=== PATIENT | male | born 1955 | race Caucasian/White ===

== ENCOUNTER 2019-09-17 17:06 | Inpatient (IN) | payer MEDICARE, OTHER ==
[~2019-09-17] VITALS: Ht 170.2 cm; Wt 63.5 kg
[2019-09-17] VITALS: BP 93/61
[~2019-09-17 17:06] MED LIST: ASPIR 8181 MG; BONIVA150 MG PO; LORCET 10-6501 EACH PO; OMEPRAZOLE40 MG PO; PRINIVIL10 MG PO; REMICADE100 MG; REMICADE100 MG/VIA; TRAMADOL HCL50 M1; ULTRAM50 MG PO; Z.0.BONIVA150 MG
--- OUTSIDE RECORDS SUMMARY | 2019-09-17 17:11 | XMS REPORT ---
Author Author [facility] Organization [facility] Address Unknown Phone Unavailable Care Team Providers Care Magistrate Assistant Name Role Phone Unavailable Unavailable Payers Payer Name Policy Type Policy Number Effective Date Expiration D ate Problems This patient has no known problems. Allergies, Adverse Reactions, Alerts Allergy Name Allergy Type Status Severity Reaction(s) Onset Date Inacti ve Date Treating Clinician Comments No Known Allergies DA Active U 2018-08-26 00:00:00 No Known Allergies DA Active U 2016-12-07 00:00:00 Medications This patient has no known medications. Results Test Description Test Time Test Comments Text Results Atomic Results Result Comments URINALYSIS COMPLETE 2018-08-26 17:37:00 UA COLOR (test code = COLU) LIGHT YELLOW YELLOW UA APPEARANCE (test code = APPU) CLEAR CLEAR UA GLUCOSE DIPSTICK (test code = DGLUU) NEGATIVE mg/dL NEGATIVE UA BILIRUBIN DIPSTICK (test code = BILU) NEGATIVE mg/dL NEGATIV E UA KETONE DIPSTICK (test code = KETU) NEGATIVE mg/dL NEGATIVE UA SPECIFIC GRAVITY (test code = SGU) 1.017 1.001-1.03 5 UA BLOOD DIPSTICK (test code = DELL) Negative mg/dL NEGATIVE UA PH DIPSTICK (test code = ANA MARIA) 6.0 5.0-8.0 UA PROTEIN DIPSTICK (test code = PROU) NEGATIVE mg/dL NEGATIVE UA UROBILINIOGEN DIPSTICK (test code = URO) NEGATIVE mg/dL NEGA TIVE UA NITRITE DIPSTICK (test code = RADHA) NEGATIVE NEGATIVE UA LEUKOCYTE ESTERASE W REFLEX (test code = LEUUR) NEGATIVE Jerilyn/ uL NEGATIVE UA WBC (test code = WBCU) 0-5 per HPF 0-5 UA RBC (test code = RBCU) 0-2 #/HPF 0-5 UA EPITHELIAL CELLS (test code = EPIU) FEW per HPF FEW UA BACTERIA (test code = BACU) NONE SEEN #/HPF NONE Urine Source? Clean CatchURINALYSIS [id number] 17:36:00* Test Item Value Reference Range Comments UA COLOR (test code = COLU) LIGHT YELLOW YELLOW UA APPEARANCE (test code = APPU) CLEAR CLEAR UA GLUCOSE DIPSTICK (test code = DGLUU) NEGATIVE mg/dL NEGATIVE UA BILIRUBIN DIPSTICK (test code = BILU) NEGATIVE mg/dL NEGATIV E UA KETONE DIPSTICK (test code = KETU) NEGATIVE mg/dL NEGATIVE UA SPECIFIC GRAVITY (test code = SGU) 1.017 1.001-1.03 5 UA BLOOD DIPSTICK (test code = DELL) Negative mg/dL NEGATIVE UA PH DIPSTICK (test code = ANA MARIA) 6.0 5.0-8.0 UA PROTEIN DIPSTICK (test code = PROU) NEGATIVE mg/dL NEGATIVE UA UROBILINIOGEN DIPSTICK (test code = URO) NEGATIVE mg/dL NEGA TIVE UA NITRITE DIPSTICK (test code = RAHDA) NEGATIVE NEGATIVE UA LEUKOCYTE ESTERASE W REFLEX (test code = LEUUR) NEGATIVE Jerilyn/ uL NEGATIVE UA WBC (test code = WBCU) per HPF 0-5 UA RBC (test code = RBCU) per HPF 0-5 UA EPITHELIAL CELLS (test code = EPIU) per HPF Few UA BACTERIA (test code = BACU) per HPF NONE Urine Source? Clean CatchBASIC METABOLIC [id number] 17:21:00* Test Item Value Reference Range Comments SODIUM (test code = NA) 139 mmol/L 136-145 POTASSIUM (test code = K) 4.2 mmol/L 3.5-5.1 CHLORIDE (test code = CL) 107.0 mmol/L 98-107 CARBON DIOXIDE (test code = CO2) 29.0 mmol/L 21-32 ANION GAP (test code = GAP) 7.2 10-20 GLUCOSE (test code = GLU) 94 mg/dL 74-106 BLOOD UREA NITROGEN (test code = BUN) 17 mg/dL 7-18 GLOMERULAR FILTRATION RATE (test code = GFR) > 60 mL/min >=6 0 Estimated GFR by using Modified MDRD formula.Chronic kidney disease is defined as either kidney damageor GFR <60 mL/min/1.73 m2 for >3 months. CREATININE (test code = CREAT) 1.10 mg/dL 0.7-1.3 BUN/CREATININE RATIO (test code = BUN/CREA) 15.5 10-2 0 CALCIUM (test code = CA) 9.0 mg/dL 8.5-10.1 [id number] 17:21:00* Test Item Value Reference Range Comments TROPONIN-I (test code = TROPI) <0.015 ng/mL 0-0.045 BASIC METABOLIC [id number] 16:46:00* Test Item Value Reference Range Comments SODIUM (test code = NA) 139 mmol/L 136-145 POTASSIUM (test code = K) 4.2 mmol/L 3.5-5.1 CHLORIDE (test code = CL) 107.0 mmol/L 98-107 CARBON DIOXIDE (test code = CO2) mmol/L 21-32 ANION GAP (test code = GAP) 10-20 GLUCOSE (test code = GLU) mg/dL 74-106 BLOOD UREA NITROGEN (test code = BUN) mg/dL 7-18 GLOMERULAR FILTRATION RATE (test code = GFR) mL/min >=6 0 CREATININE (test code = CREAT) mg/dL 0.7-1.3 BUN/CREATININE RATIO (test code = BUN/CREA) 10-2 0 CALCIUM (test code = CA) 9.0 mg/dL 8.5-10.1 [id number] 16:46:00* Test Item Value Reference Range Comments TROPONIN-I (test code = TROPI) ng/mL 0-0.045 CBC W/O [id number] 16:16:00* Test Item Value Reference Range Comments WHITE BLOOD CELL (test code = WBC) 5.1 K/mm3 4.5-12.5 RED BLOOD CELL (test code = RBC) 5.15 mill/mm3 4.0-5.8 HEMOGLOBIN (test code = HGB) 16.3 gram/dL 13.0-17.5 HEMATOCRIT (test code = HCT) 50.8 % 42.0-52.0 MEAN CELL VOLUME (test code = MCV) 97.7 fL 80-98 MEAN CELL HGB (test code = MCH) 31.7 picogram 27.0-33.0 MEAN CELL HGB CONCETRATION (test code = MCHC) 32.4 gram/dL 33 .0-36.0 RED CELL DISTRIBUTION WIDTH (test code = RDW) 12.4 % 11 .6-16.2 PLATELET COUNT (test code = PLT) 89 K/mm3 150-450 MEAN PLATELET VOLUME (test code = MPV) 10.8 fL 6.7-11.0 CBC W/O [id number] 16:13:00* Test Item Value Reference Range Comments WHITE BLOOD CELL (test code = WBC) K/mm3 4.5-12.5 RED BLOOD CELL (test code = RBC) mill/mm3 4.0-5.8 HEMOGLOBIN (test code = HGB) 16.3 gram/dL 13.0-17.5 HEMATOCRIT (test code = HCT) 50.8 % 42.0-52.0 MEAN CELL VOLUME (test code = MCV) fL 80-98 MEAN CELL HGB (test code = MCH) picogram 27.0-33.0 MEAN CELL HGB CONCETRATION (test code = MCHC) gram/dL 33 .0-36.0 RED CELL DISTRIBUTION WIDTH (test code = RDW) % 11 .6-16.2 PLATELET COUNT (test code = PLT) K/mm3 150-450 MEAN PLATELET VOLUME (test code = MPV) fL 6.7-11.0 - CT HEAD/BRAIN W/O [id number] 15:59:00 Name: ROSEANN HURT [facility] : 1955 Age/S: 63 / M [address] [facility] Unit #: [id number] Loc: [facility] [place] [address] Phys: Cristy Chan DO Acct: [id number] Dis Date: Status: REG ER PHONE #: [phone] Exam Date: 08/26/2018 6137 FAX #: [phone] Reason: dizziness EXAMS: CPT CODE: [id number] CT HEAD/BRAIN W/O CONT 73084 REASON FOR EXAM: dizziness EXAM ORDER DATE: 08/26/2018 3:48 PM Ordering MGracielaDGraciela: Cristy Chan DO PROCEDURE: - CT HEAD/BRAIN W/O CONT COMPARISON: FINDINGS: CT images of the brain were obtained without IV contrast. Dose modulation, iterative reconstruction, and/or weight based adjustment of the MA/KV was utilized to reduce the radiation dose to as low as reasonably achievable. The brain parenchyma is within normal limits. The palmer-white matter delineation is unremarkable. The ventricles, cisterns, and sulci are unremarkable. There is no evidence of hemorrhage, mass, mass effect. There is no evidence of acute or old infarct. The calvarium is intact. IMPRESSION: Unremarkable brain. at 1559 Reported and signed by: Mason Garcia M.D. CC: Nico Smith DO; Cristy Chan DO Techn ologist:Marcela Lima RT(R)(CT) CTDI: DLP: Trnscb Date/Ari e: 08/26/2018 (1559) t.SDR.VTL Orig Print D/T: S: 019 (2792) CTDI: DLP: PAGE 1 Sign ed Report DRUGS OF ABUSE SCREEN [id number] 04:57:00* Test Item Value Reference Range Comments URN COCAINE (test code = COCAURN) NEGATIVE NEGATIVE URN CANNABINOIDS (test code = CANNABURN) NEGATIVE NEGATIV E URN AMPHETAMINE (test code = AMPHETURN) NEGATIVE NEGATIVE URN BARBITURATE (test code = BARBITURN) NEGATIVE NEGATIVE URN BENZODIAZEPINE (test code = BENZOURN) NEGATIVE NEGATI VE Cut-off value:200 ng/mL URN OPIATES (test code = OPIATURN) POSITIVE NEGATIVE Cut-off value:2000 ng/mL URN PHENCYCLIDINE (PCP) (test code = PHENCURN) NEGATIVE N EGATIVE Cutoffs:Barbiturates 200 ng/mLBenzodiazepines 200 ng/mLTHC Cannabinoids 50 ng/mLOpiates(Morphine) 2000 ng/mLAmphetamine 1000 ng/mLCocaine 300 ng/mLPCP phencyclidine 25 ng/mL Unconfirmed screening results shouldnot be used for non-medical purposes. URINALYSIS [id number] 04:52:00* Test Item Value Reference Range Comments UA COLOR (test code = COLU) YELLOW YEL/STRAW UA APPEARANCE (test code = APPU) CLEAR CLEAR UA GLUCOSE DIPSTICK (test code = DGLUU) NEGATIVE NEGATIVE UA BILIRUBIN DIPSTICK (test code = BILU) NEGATIVE NEGATIV E UA KETONE DIPSTICK (test code = KETU) TRACE NEGATIVE UA SPECIFIC GRAVITY (test code = SGU) 1.021 1.005-1.03 0 UA BLOOD DIPSTICK (test code = DELL) NEGATIVE NEGATIVE UA PH DIPSTICK (test code = ANA MARIA) 5.0 5.0-7.0 UA PROTEIN DIPSTICK (test code = PROU) NEGATIVE NEGATIVE UA UROBILINIOGEN DIPSTICK (test code = URO) 2.0 mg/dL 0.2- 1.0 UA NITRITE DIPSTICK (test code = RADHA) NEGATIVE NEGATIVE UA LEUKOCYTE ESTERASE DIPSTICK (test code = LEUU) NEGATIVE NEGATIVE UA WBC (test code = WBCU) 0-3 WBC/HPF 0-3 UA RBC (test code = RBCU) 0-3 RBC/HPF 0-3 UA BACTERIA (test code = BACU) TRACE /HPF NONE SEEN UA SQUAMOUS CELLS (test code = SQU) 0-5 /HPF NONE SEEN UA HYALINE CAST (test code = HYALU) 6-10 /LPF NONE SEEN UA MUCUS (test code = MUCU) TRACE /LPF NONE SEEN COMMENTS: Clean CatchDRUGS OF ABUSE SCREEN [id number] 04:44:00* Test Item Value Reference Range Comments URN COCAINE (test code = COCAURN) NEGATIVE NEGATIVE URN CANNABINOIDS (test code = CANNABURN) NEGATIVE NEGATIV E URN AMPHETAMINE (test code = AMPHETURN) NEGATIVE NEGATIVE URN BARBITURATE (test code = BARBITURN) NEGATIVE NEGATIVE URN BENZODIAZEPINE (test code = BENZOURN) NEGATIVE NEGATI VE Cut-off value:200 ng/mL URN OPIATES (test code = OPIATURN) NEGATIVE URN PHENCYCLIDINE (PCP) (test code = PHENCURN) NEGATIVE N EGATIVE Cutoffs:Barbiturates 200 ng/mLBenzodiazepines 200 ng/mLTHC Cannabinoids 50 ng/mLOpiates(Morphine) 2000 ng/mLAmphetamine 1000 ng/mLCocaine 300 ng/mLPCP phencyclidine 25 ng/mL Unconfirmed screening results shouldnot be used for non-medical purposes. CBC W/AUTO [id number] 04:14:00* Test Item Value Reference Range Comments WHITE BLOOD CELL (test code = WBC) 3.72 x10 3/uL 4.5-11.0 RED BLOOD CELL (test code = RBC) 5.09 x10 6/uL 4.00-5.60 HEMOGLOBIN (test code = HGB) 16.6 g/dL 12.5-16.9 HEMATOCRIT (test code = HCT) 50.0 % 37.5-50.7 MEAN CELL VOLUME (test code = MCV) 98.2 fL 81.0-99.0 MEAN CELL HGB (test code = MCH) 32.6 pg 27.0-33.0 MEAN CELL HGB CONCETRATION (test code = MCHC) 33.2 g/dL 33 .0-37.0 RED CELL DISTRIBUTION WIDTH CV (test code = RDW) 12.4 % 11.5-14.5 RED CELL DISTRIBUTION WIDTH SD (test code = RDW-SD) 45.7 fL 37.0-54.0 PLATELET COUNT (test code = PLT) 67 x10 3/uL 150-400 IMMATURE PLATELET FRACTION (test code = IPF) 4.6 % 0.9 -11.2 MEAN PLATELET VOLUME (test code = MPV) 10.9 fL 7.0-9.0 NEUTROPHIL % (test code = NT%) 40.3 % 56.0-77.0 IMMATURE GRANULOCYTE % (test code = IG%) 0.3 % 0.0-2.0 LYMPHOCYTE % (test code = LY%) 31.7 % 14.0-32.0 MONOCYTE % (test code = MO%) 26.6 % 4.8-9.0 EOSINOPHIL % (test code = EO%) 0.3 % 0.3-3.7 BASOPHIL % (test code = BA%) 0.8 % 0.0-2.0 NUCLEATED RBC % (test code = NRBC%) 0.0 % 0-0 NEUTROPHIL # (test code = NT#) 1.50 x10 3/uL 2.0-7.6 IMMATURE GRANULOCYTE # (test code = IG#) 0.01 x10 3/uL 0.00-0. 03 LYMPHOCYTE # (test code = LY#) 1.18 x10 3/uL 1.0-3.8 MONOCYTE # (test code = MO#) 0.99 x10 3/uL 0.1-0.8 EOSINOPHIL # (test code = EO#) 0.01 x10 3/uL 0.0-0.2 BASOPHIL # (test code = BA#) 0.03 x10 3/uL 0.0-0.2 NUCLEATED RBC # (test code = NRBC#) 0.00 x10 3/uL 0.0-0.1 MANUAL DIFF REQUIRED (test code = MDIFF) NO SLIDE REVIEWED, CONSISTENT WITH AUTO DIFF. PLT [id number] 04:14:00* Test Item Value Reference Range Comments PLATELET ESTIMATE (test code = PLTEST) 68-7-85 THOUSAND ADEQUATE PLATELET MORPHOLOGY (test code = PLTMORPH) NORMAL CBC W/AUTO [id number] 04:12:00* Test Item Value Reference Range Comments WHITE BLOOD CELL (test code = WBC) 3.72 x10 3/uL 4.5-11.0 RED BLOOD CELL (test code = RBC) 5.09 x10 6/uL 4.00-5.60 HEMOGLOBIN (test code = HGB) 16.6 g/dL 12.5-16.9 HEMATOCRIT (test code = HCT) 50.0 % 37.5-50.7 MEAN CELL VOLUME (test code = MCV) 98.2 fL 81.0-99.0 MEAN CELL HGB (test code = MCH) 32.6 pg 27.0-33.0 MEAN CELL HGB CONCETRATION (test code = MCHC) 33.2 g/dL 33 .0-37.0 RED CELL DISTRIBUTION WIDTH CV (test code = RDW) 12.4 % 11.5-14.5 RED CELL DISTRIBUTION WIDTH SD (test code = RDW-SD) 45.7 fL 37.0-54.0 PLATELET COUNT (test code = PLT) 67 x10 3/uL 150-400 IMMATURE PLATELET FRACTION (test code = IPF) 4.6 % 0.9 -11.2 MEAN PLATELET VOLUME (test code = MPV) 10.9 fL 7.0-9.0 NEUTROPHIL % (test code = NT%) 40.3 % 56.0-77.0 IMMATURE GRANULOCYTE % (test code = IG%) 0.3 % 0.0-2.0 LYMPHOCYTE % (test code = LY%) 31.7 % 14.0-32.0 MONOCYTE % (test code = MO%) 26.6 % 4.8-9.0 EOSINOPHIL % (test code = EO%) 0.3 % 0.3-3.7 BASOPHIL % (test code = BA%) 0.8 % 0.0-2.0 NUCLEATED RBC % (test code = NRBC%) 0.0 % 0-0 NEUTROPHIL # (test code = NT#) 1.50 x10 3/uL 2.0-7.6 IMMATURE GRANULOCYTE # (test code = IG#) 0.01 x10 3/uL 0.00-0. 03 LYMPHOCYTE # (test code = LY#) 1.18 x10 3/uL 1.0-3.8 MONOCYTE # (test code = MO#) 0.99 x10 3/uL 0.1-0.8 EOSINOPHIL # (test code = EO#) 0.01 x10 3/uL 0.0-0.2 BASOPHIL # (test code = BA#) 0.03 x10 3/uL 0.0-0.2 NUCLEATED RBC # (test code = NRBC#) 0.00 x10 3/uL 0.0-0.1 MANUAL DIFF REQUIRED (test code = MDIFF) NO SLIDE REVIEWED, CONSISTENT WITH AUTO DIFF. PLT [id number] 04:12:00* Test Item Value Reference Range Comments PLATELET ESTIMATE (test code = PLTEST) THOUSAND ADEQUATE PROTHROMBIN [id number] 03:04:00* Test Item Value Reference Range Comments PROTHROMBIN TIME PATIENT (test code = PTP) 14.2 SECONDS 9.3-1 2.9 INTERNATIONAL NORMAL RATIO (test code = INR) 1.3 0.8 -1.2 TARGET INR BY INDICATION Indication INR1. Prophylaxis of venous thrombosis 2.0 - 3.0 (orthopedic surgery), Prophylaxis of venous thrombosis (other than high-risk surgery), Treatment of Deep Vein Thrombosis/Pulmonary Embolism, Prevention of systemic embolism - Tissue heart valves, Acute Myocardial Infarction (to prevent systemic embolism), Valvular heart disease, Atrial Fibrillation, Bileaflet mechanical valve in aortic position.2. Mechanical prosthetic valves (high risk), 2.5 - 3.5 Presence of Lupus Anticoagulant or Antiphospholipid Antibodies, Prevention of systemic embolism - Acute Myocardial Infarction (to prevent recurrent infarct). THROMBOPLASTIN TIME [id number] 03:04:00* Test Item Value Reference Range Comments THROMBOPLASTIN TIME PARTIAL (test code = PTT) 56.4 Seconds 25 .0-39.5 Therapeutic Range: 61.8-83.8 Sec Effective 06/12/2013 HEPATIC FUNCTION [id number] 02:47:00* Test Item Value Reference Range Comments TOTAL PROTEIN (test code = PROT) 8.3 g/dL 6.4-8.2 ALBUMIN (test code = ALB) 3.60 g/dL 3.4-5.0 BILIRUBIN TOTAL (test code = BILT) 1.10 mg/dL 0.0-1.0 BILIRUBIN DIRECT (test code = BILD) 0.30 MG/DL 0.0-0.30 BILIRUBIN INDIRECT (test code = BILIND) 0.80 MG/DL SGOT/AST (test code = AST) 133 IUnit/L 15-37 SGPT/ALT (test code = ALT) 104 IUnit/L 15-65 ALKALINE PHOSPHATASE TOTAL (test code = ALKP) 103 IUnit/L 20 -125 CREATINE KINASE (CK)2018-06-24 02:47:00* Test Item Value Reference Range Comments CREATINE KINASE (CK) (test code = CK) 136 35-232 Result is in INTERNATIONAL UNITS/LITER [id number] 02:47:00* Test Item Value Reference Range Comments LIPASE (test code = LIP) 305 IUnit/L 73-393 [id number] 02:47:00* Test Item Value Reference Range Comments TROPONIN-I (test code = TROPI) < 0.015 ng/mL 0.000-0.045 N egative: <= 0.045 Positive: >= 0.046 Correlation with serial results, other cardiac markers andclinical findings is necessary to determine the clinicalsignificance of this result. Results using different methodologies should not be comparedto one another as quantitative results may vary by method. [id number] 02:47:00* Test Item Value Reference Range Comments ALCOHOL (test code = ALC) < 0.003 G/dL <0.003 Ethyl Alcohol Interpretation: 0.100 gm/dL - Legally Intoxicated 0.300-0.400 gm/dL - Severely Intoxicated >0.400 gm/dL - Potentially LethalResults are for Medical purposes only, and not for Legal orEmployment evaluation purposes. - XR CHEST 1 [id number] 02:35:00 FAX: Nico Simms DO [phone] Mason: St: REG FAX: Michele Brewster MD [phone] Name: ROSEANN HURT [facility] : 1955 Age/S: 63/M [address] [place] [address] Unit #: [id number] Loc: [place] [address] Phys: Michele Catalan MD Acct: [id number] Dis Date: Status: REG ER PHONE #: [phone] Exam Date: 06/24/2018220 FAX #: [phone] Reason: Seizure Adult EXAMS: CPT CODE: [id number] XR CHEST 1 V 29120 Chest, single view dated 06/24/2018. HISTORY: Seizure. Comparison is made to a prior study dated 10/08/2016. The heart is normal in size. The cardiomediastinal shadow is stable. Lung volumes are decreased with subsegmental atelectasis in the left infrahilar region and both lung bases. The lungs otherwise appear clear. The pulmonary vasculature is normal in caliber. No acute pleural space abnormalities are identified. No gross abnormalities of the bony thorax are noted. IMPRESSION: 1. No radiographic evidence of acute cardiopulmonary disease. SL: 131 Electronica lly Signed by Carter Grande on 06/24/19 19 at 0235 Reported and signed by: Chacho Grande M.D. CC: Nico Smith DO; Michele abdul MD Technologist: RT Wallace(Stefanie) Trnscrd Date/Time/By: 06/24/2018 (0235) : By: Patrizia Orig Print D/T: S: 06/24/2018 (0238) PAGE 1 Signed Report CBC W/AUTO [id number] 02:33:00* Test Item Value Reference Range Comments WHITE BLOOD CELL (test code = WBC) 3.72 x10 3/uL 4.5-11.0 RED BLOOD CELL (test code = RBC) 5.09 x10 6/uL 4.00-5.60 HEMOGLOBIN (test code = HGB) 16.6 g/dL 12.5-16.9 HEMATOCRIT (test code = HCT) 50.0 % 37.5-50.7 MEAN CELL VOLUME (test code = MCV) 98.2 fL 81.0-99.0 MEAN CELL HGB (test code = MCH) 32.6 pg 27.0-33.0 MEAN CELL HGB CONCETRATION (test code = MCHC) 33.2 g/dL 33 .0-37.0 RED CELL DISTRIBUTION WIDTH CV (test code = RDW) 12.4 % 11.5-14.5 RED CELL DISTRIBUTION WIDTH SD (test code = RDW-SD) 45.7 fL 37.0-54.0 PLATELET COUNT (test code = PLT) 67 x10 3/uL 150-400 IMMATURE PLATELET FRACTION (test code = IPF) 4.6 % 0.9 -11.2 MEAN PLATELET VOLUME (test code = MPV) 10.9 fL 7.0-9.0 LYMPHOCYTE % (test code = LY%) % 14.0-32.0 MANUAL DIFF REQUIRED (test code = MDIFF) PLT [id number] 02:33:00* Test Item Value Reference Range Comments PLATELET ESTIMATE (test code = PLTEST) THOUSAND ADEQUATE CBC W/AUTO [id number] 02:33:00* Test Item Value Reference Range Comments WHITE BLOOD CELL (test code = WBC) 3.72 x10 3/uL 4.5-11.0 RED BLOOD CELL (test code = RBC) 5.09 x10 6/uL 4.00-5.60 HEMOGLOBIN (test code = HGB) 16.6 g/dL 12.5-16.9 HEMATOCRIT (test code = HCT) 50.0 % 37.5-50.7 MEAN CELL VOLUME (test code = MCV) 98.2 fL 81.0-99.0 MEAN CELL HGB (test code = MCH) 32.6 pg 27.0-33.0 MEAN CELL HGB CONCETRATION (test code = MCHC) 33.2 g/dL 33 .0-37.0 RED CELL DISTRIBUTION WIDTH CV (test code = RDW) 12.4 % 11.5-14.5 RED CELL DISTRIBUTION WIDTH SD (test code = RDW-SD) 45.7 fL 37.0-54.0 PLATELET COUNT (test code = PLT) 67 x10 3/uL 150-400 IMMATURE PLATELET FRACTION (test code = IPF) 4.6 % 0.9 -11.2 MEAN PLATELET VOLUME (test code = MPV) 10.9 fL 7.0-9.0 LYMPHOCYTE % (test code = LY%) % 14.0-32.0 MANUAL DIFF REQUIRED (test code = MDIFF) PLT [id number] 02:33:00* Test Item Value Reference Range Comments PLATELET ESTIMATE (test code = PLTEST) THOUSAND ADEQUATE CHEMISTRY 8 [id number] 02:21:00* Test Item Value Reference Range Comments ISTAT-SODIUM (test code = NAP) MMOL/L 134-147 ISTAT-POTASSIUM (test code = KP) MMOL/L 3.4-5.0 ISTAT-CHLORIDE (test code = CLP) MMOL/L 100-108 ISTAT CARBON DIOXIDE (test code = ISTAT-CO2) mmol/L 21- 33 ISTAT CALCIUM IONIZED (test code = ISTAT-GARFIELD) MG/DL 1. 12-1.32 ISTAT-GLUCOSE (test code = GLUP) MG/DL 70-110 ISTAT-BUN (test code = BUNP) MG/DL 7-18 BEDSIDE CREATININE (test code = CREATBED) MG/DL 0.6-1. 3 GLOMERULAR FILTRATION RATE POC (test code = GFRBED) 55 ML/MIN CHEMISTRY 8 [id number] 02:21:00* Test Item Value Reference Range Comments ISTAT-SODIUM (test code = NAP) 134 MMOL/L 134-147 ISTAT-POTASSIUM (test code = KP) 4.2 MMOL/L 3.4-5.0 ISTAT-CHLORIDE (test code = CLP) 98 MMOL/L 100-108 Performed by certified flexographic printing press operator at [facility] ISTAT CARBON DIOXIDE (test code = ISTAT-CO2) 26.0 mmol/L 21- 33 ISTAT CALCIUM IONIZED (test code = ISTAT-GARFIELD) 1.03 MG/DL 1. 12-1.32 ISTAT-GLUCOSE (test code = GLUP) 96 MG/DL 70-110 ISTAT-BUN (test code = BUNP) 21 MG/DL 7-18 BEDSIDE CREATININE (test code = CREATBED) 1.4 MG/DL 0.6-1. 3 GLOMERULAR FILTRATION RATE POC (test code = GFRBED) 55 ML/MIN - US ABDOMEN [id number] 00:00:00 Name: ROSEANN HURT [facility] : 1955 Age/S: 63 / M [address] [place] [address] Bl Unit #: [id number] Loc: [place] [address] Phys: Michele Catalan MD Acct: [id number] Dis Date: Status: REG ER PHONE #: [phone] Exam Date: 06/24/2018 0330 FAX #: [phone] Reason: ABDOMINAL PAIN EXAMS: CPT CODE: [id number] US ABDOMEN LTD [id number] EXAM: US Abdomen Limited, Right Upper Quadrant EXAM DATE/TIME: 06/24/2018 2:54 AM CLINICAL HISTORY: 63 years old, male; Pain; Abdominal pain; Generalized TECHNIQUE: Real-time ultrasound of the abdomen with image documentation. Examination was focused on the right upper quadrant. COMPARISON: US ABDOMEN COMPLETE 10/24/2017 9:53 AM FINDINGS: Liver: Diffuse coarse hyperechogenicity of the hepatic parenchyma possibly representing fibrofatty infiltration versus cirrhosis. A 6 mm hypoechoic lesion seen within the right hepatic lobe compatible with a simple cyst. Gallbladder: Status post cholecystectomy. Common bile duct: Normal. No stones. No dilation. Pancreas: Visualized pancreas is unremarkable. Right kidney: There is a 5 mm simple appearing cyst seen within the right kidney. Soft tissues: There is recanalization of the umbilical vein documented with color Doppler and duplex waveform sonography. IMPRESSION: 1. 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 2. Recanalization of the umbilical vein 3. Probable simple hepatic cyst within the right hep atic lobe measuring 6 mm. 4. 5 mm simple appearing right renal cysts at 0403 Reported and signed by: Kevon Roldan M.D. PAGE 1 Signed Report (CONTINUED) Name: ROSEANN HURT [facility] : 1955 Age/S: 63 / M [address] [place] [address] Bl Unit #: [id number] Loc: [place] [address] Phys: Michele Catalan MD Acct: [id number] Dis Date: Status: REG ER PHONE #: [phone] Exam Date: 02/2019 033 FAX #: [phone] Reason: ABDOMINAL BISHOP N EXAMS: CPT CODE: [id number] US ABDOMEN LTD [id number] <Continued> CC: Nico Smith DO; Michele Catalan MD Technologist: Melita Manriquez RDMS(A) Trnscb Date/Time: 06/24/2018 (402) [email or web address] Orig Print D/T: S: 06/24/2018 (040) Probe: PAGE 2 Signed Report
[2019-09-17] MEDS ORDERED: MECLIZINE HCL 12.5 MG TAB PO ONE (17:45)
[2019-09-17] MEDS ORDERED: SODIUM CHLORIDE 0.9% 1000ML 1,000 ML IV ONE (17:45)
[2019-09-17 18:19] LABS: BASOPHILS % 0.6 % (0.0-1.0); EOSINOPHILS # (AUTO) 0.1 (0.0-0.4); EOSINOPHILS % 1.1 % (0.0-6.0); HEMATOCRIT 46.1 % (38.2-49.6); HEMOGLOBIN 16.2 g/dL (14.0-18.0); INR 1.02; LYMPHOCYTES % 42.1 % (18.0-39.1); MEAN CORPUSCULAR HEMOGLOBIN 34.2 pg (28-32); MEAN CORPUSCULAR HGB CONC 35.1 g/dL (31-35); MEAN CORPUSCULAR VOLUME 97.5 fL (81-99); MONOCYTES # (AUTO) 0.6 (0.2-0.8); MONOCYTES % 12.3 % (4.4-11.3); NEUTROPHILS # (AUTO) 2.1 (2.1-6.9); NEUTROPHILS % 43.5 % (38.7-80.0); PLATELET COUNT 89 x10e3/uL (140-360); RED BLOOD COUNT 4.73 x10e6/uL (4.3-5.7); RED CELL DISTRIBUTION WIDTH 12.4 % (11.7-14.4)
[2019-09-17 18:20] LABS: PARTIAL THROMBOPLASTIN TIME 43.6 seconds (23.8-35.5)
[2019-09-17 18:27] LABS: ALANINE AMINOTRANSFERASE 24 IU/L (0-55); ALBUMIN 3.5 g/dL (3.5-5.0); ALBUMIN/GLOBULIN RATIO 0.8 (0.8-2.0); ALKALINE PHOSPHATASE 80 IU/L (40-150); ANION GAP 11.8 mmol/L (8-16); BLOOD UREA NITROGEN 9 mg/dL (7-26); BUN/CREATININE RATIO 9 (6-25); CALCIUM 9.3 mg/dL (8.4-10.2); CARBON DIOXIDE 24 mmol/L (22-29); CHLORIDE 106 mmol/L (98-107); CREATINE KINASE 118 IU/L (30-200); CREATININE, SERUM 1.01 mg/dL (0.72-1.25); EST GLOMERULAR FILTRATION RATE > 60 ML/MIN (60-); GLUCOSE 76 mg/dL (74-118); POTASSIUM 3.8 mmol/L (3.5-5.1); SODIUM 138 mmol/L (136-145)
[2019-09-17] MEDS ORDERED: ASPIRIN 81 MG CHEW TAB PO ONE (18:45)
--- NOTE | 2019-09-17 18:46 | Diagnostic Imaging Report ---
Examination: CT BRAIN WO CONTRAST History:Dizziness Comparison studies:Multiple head CTs with the most recent performed Apr 30, 2016. Technique: Axial images were obtained from the skull base to the vertex. Coronal and sagittal images reconstructed from the axial data. Dose modulation, iterative reconstruction, and/or weight based adjustment of the mA/kV was utilized to reduce the radiation dose to as low as reasonably achievable. Intravenous contrast: None Findings: Scalp: No abnormalities. Bones: No fractures, blastic or lytic lesions. Brain sulci: Appropriate for age. Ventricles: Normal in size and configuration. No hydrocephalus. Extra-axial space: No abnormalities. Parenchyma: No masses, hemorrhage, or acute or chronic cortical based vascular insults.. Sellar/suprasellar region: No abnormalities. Craniocervical junction: Patent foramen magnum. No Chiari one malformation. Incidental findings: Atherosclerotic calcification of the cavernous and supraclinoid internal carotid arteries. Impression: No new or acute intracranial abnormalities when compared to most recent head CT performed April 30, 2016. Signed by: Dr. Monica Mc M.D. on 09/17/2019 6:42 PM
--- NOTE | 2019-09-17 18:51 | Diagnostic Imaging Report ---
EXAMINATION: CHEST SINGLE (PORTABLE) COMPARISON: Chest x-ray report 04/30/2016. Images are not available for review. INDICATION: Dizziness, nausea ^Y ^ERMD ORDER ^[id number] ^1820 ^Y DISCUSSION: Frontal view of the chest obtained at 1829 hours. HEART AND MEDIASTINUM: The heart is top normal in size. LINES: None. LUNGS/PLEURA: Right infrahilar atelectasis. Minimal left basilar atelectasis. Pulmonary vascular markings are normal. No interstitial edema. No pleural effusion or pneumothorax. BONES AND SOFT TISSUES: No focal osseous lesion. The soft tissues are normal. IMPRESSION: Bibasilar atelectasis. Signed by: Dr. Reddy Shearer MD on 09/17/2019 6:47 PM
[2019-09-17 18:55] LABS: BILIRUBIN,URINE NEGATIVE (NEGATIVE); CLARITY,URINE SL CLOUDY (CLEAR); COLOR,URINE YELLOW (YELLOW); KETONES,URINE NEGATIVE (NEGATIVE); LEUKOCYTE ESTERASE ,URINE NEGATIVE (NEGATIVE); NITRITE,URINE NEGATIVE (NEGATIVE); PROTEIN,URINE DIPSTICK NEGATIVE (NEGATIVE); URINE UROBILINOGEN 1 mg/dL (0.2 - 1)
[2019-09-17 18:57] LABS: AMPHETAMINES SCREEN,URINE NEGATIVE (NEGATIVE); BENZODIAZEPINES SCREEN,URINE NEGATIVE (NEGATIVE); PHENCYCLIDINE SCREEN,URINE NEGATIVE (NEGATIVE)
[2019-09-17 19:07] LABS: BACTERIA,URINE FEW /HPF
[2019-09-17 19:08] LABS: MUCUS,URINE FEW (RARE)
[2019-09-17] MEDS ORDERED: FENOFIBRATE145 MG PO (19:20)
[2019-09-17] MEDS ORDERED: tylenol #4 PO (19:20)
[2019-09-17] MEDS ORDERED: ONDANSETRON HCL INJ 2MG/ML 2ML 2 MG/ML VIAL IV PRN ×2 (19:30→19:45)
[2019-09-17 19:34] VITALS: BP 115/81
--- NOTE | 2019-09-17 19:41 | NUR ---
H&P cc: dizziness HPI: 64yoM, PCP , developed dizziness for past months; Now worse, with minimal movement dizzy and room spinning; NO head trauma. PMH: GERD, right carotid stenosis, nicotine dependence in remission PShx: cholecystecotmy, tonsillectomy ALlergies; see emr FH/SH; no etoh; hx cigs Meds; see MAR ROS: no f/c/s/cp/sob/skin rash/leg pain/focal limb weakness/confusion v/s revd PE tired appearing; lying in bed, unable to sit up. eyes slightly closed. anicteric ns1s2 mod bs soft nt nd no e/t skin dry flat affect labs/med revd A/P; BPPV- start meclizine; orthostatic V/S negative Dizziness RIght carotid stenosis- cardio eval GERD- ppi Nicotine dependece in remission- no active use Prop: scd; ppi Dipso: check orthostatic v/s; PT consult Juventino Martinez MD, PhD.
[2019-09-17] MEDS ORDERED: DOCUSATE SODIUM 100 MG CAP PO PRN (19:45)
[2019-09-17] MEDS ORDERED: ACETAMINOPHEN 325 MG TAB PO PRN (19:45)
[2019-09-17 19:48] LABS: LYMPHOCYTES % (MANUAL) 36 % (19-48); MONOCYTES % (MANUAL) 13 % (3.4-9.0); NEUTROPHILS % (MANUAL) 45 % (40-74); RBC MORPHOLOGY COMMENT NORMAL
[2019-09-17 19:49] LABS: PLATELET ESTIMATE SLIGHTLY DECREASED; PLATELET MORPHOLOGY COMMENT NORMAL
[2019-09-17 20:00] VITALS: BP 115/81
--- NOTE | 2019-09-17 20:11 | NUR ---
PAGED CONSULT MD Alireza PACHECO. NO ANSWER. LEFT MESSAGE. AWAITING CALL BACK.
[2019-09-17] MEDS ORDERED: ZOLPIDEM TARTRATE 5 MG TAB PO PRN (21:00)
[2019-09-17] MEDS: SODIUM CHLORIDE 0.9% 1000ML 1,000 ML IV SCH (21:25)
[2019-09-17] MEDS: MECLIZINE HCL 12.5 MG TAB PO SCH (21:30)
--- NOTE | 2019-09-17 21:30 | NUR ---
DID NOT ADMINISTER MECLIZINE. PATIENT REPORTS GIVEN IN ER. ON EMAR REPORTS MECLIZINE GIVEN BY ANOTHER SHIFT.
[2019-09-17] MEDS ORDERED: GABAPENTIN300 MG PO (23:17)
[2019-09-17] MEDS ORDERED: CYCLOBENZAPRINE10 MG PO (23:17)
[2019-09-18] VITALS (11 sets, daily range): BP systolic 95–138; BP diastolic 58–87
--- NOTE | 2019-09-18 00:40 | NUR ---
PAGED MD Justine SCHMIDT REGARDING LOW BLOOD PRESSURE. LEFT MESSAGE. AWAITING CALLBACK.
[2019-09-18 02:36] LABS: CREATINE KINASE MB 7.3 ng/mL (0-5.0)
--- NOTE | 2019-09-18 05:15 | NUR ---
Progress note- IM O/N see below ROS: no f/c/s/cp/sob/skin rash/leg pain/focal limb weakness/confusion v/s revd PE tired appearing; lying in bed, unable to sit up. eyes slightly closed. anicteric ns1s2 mod bs soft nt nd no e/t skin dry flat affect labs/med revd A/P; BPPV- start meclizine; orthostatic V/S negative Dizziness RIght carotid stenosis- cardio eval GERD- ppi Nicotine dependece in remission- no active use Prop: scd; ppi Dipso: check orthostatic v/s; PT consult 09-18-19 Hypotensive- continue IVF; THrombocytopenia- avoid heparin prods. cont meclizine; PT eval Juventino Martinez MD, PhD.
[2019-09-18] MEDS: PANTOPRAZOLE SOD 40 MG TABEC PO SCH (05:30)
[2019-09-18] MEDS: MECLIZINE HCL 12.5 MG TAB PO SCH ×3 (05:30→22:00)
[2019-09-18] MEDS: SODIUM CHLORIDE 0.9% 1000ML 1,000 ML IV SCH ×3 (05:30→18:45)
[2019-09-18 06:08] LABS: BASOPHILS % 0.5 % (0.0-1.0); EOSINOPHILS # (AUTO) 0.1 (0.0-0.4); EOSINOPHILS % 1.3 % (0.0-6.0); HEMATOCRIT 41.3 % (38.2-49.6); HEMOGLOBIN 14.2 g/dL (14.0-18.0); LYMPHOCYTES # (AUTO) 1.9 (1.0-3.2); LYMPHOCYTES % 50.7 % (18.0-39.1); MEAN CORPUSCULAR HEMOGLOBIN 34.1 pg (28-32); MEAN CORPUSCULAR HGB CONC 34.4 g/dL (31-35); MEAN CORPUSCULAR VOLUME 99.3 fL (81-99); MONOCYTES # (AUTO) 0.5 (0.2-0.8); MONOCYTES % 14.1 % (4.4-11.3); NEUTROPHILS # (AUTO) 1.3 (2.1-6.9); NEUTROPHILS % 33.1 % (38.7-80.0); PLATELET COUNT 71 x10e3/uL (140-360); RED BLOOD COUNT 4.16 x10e6/uL (4.3-5.7); RED CELL DISTRIBUTION WIDTH 12.6 % (11.7-14.4)
[2019-09-18 06:28] LABS: ALANINE AMINOTRANSFERASE 18 IU/L (0-55); ALBUMIN 2.8 g/dL (3.5-5.0); ALBUMIN/GLOBULIN RATIO 0.8 (0.8-2.0); ALKALINE PHOSPHATASE 65 IU/L (40-150); ANION GAP 11.9 mmol/L (8-16); BLOOD UREA NITROGEN 9 mg/dL (7-26); BUN/CREATININE RATIO 9 (6-25); CALCIUM 8.7 mg/dL (8.4-10.2); CARBON DIOXIDE 21 mmol/L (22-29); CHLORIDE 111 mmol/L (98-107); CREATININE, SERUM 1.02 mg/dL (0.72-1.25); EST GLOMERULAR FILTRATION RATE > 60 ML/MIN (60-); GLUCOSE 104 mg/dL (74-118); POTASSIUM 3.9 mmol/L (3.5-5.1); SODIUM 140 mmol/L (136-145)
--- NOTE | 2019-09-18 07:14 | NUR ---
REPORT GIVEN TO [facility] NURSE. AAOX3. RESTING IN BED. SR UP X2. BED LOCKED AND IN LOW POSITION. BED ALARM ACTIVATED. NO SIGNS OF INFILTRATION TO IV. CALL LIGHT WITHIN REACH.
[2019-09-18] MEDS: FENOFIBRATE 145 MG TAB PO SCH (08:59)
[2019-09-18] MEDS: ASPIRIN 325 MG TAB PO SCH (08:59)
--- NOTE | 2019-09-18 09:30 | NUR ---
BEDSIDE SHIFT REPORT RECEIVED FORM THE MORNING SHIFT RN. EDUCATED PT ABOUT FALL PRECAUTIONS. PT VERBALIZED UNDERSTANDING. CALL LIGHT WITH IN EASY REACH. INSTRUCTED PT TO USE CALL LIGHT FOR ALL THE NEEDS. BED IS LOW AND LOCKED. SIDE RAILS X2. BED ALARM IS ON. PT DENIES NEEDS AT THIS TIME.
[2019-09-18 09:48] LABS: CREATINE KINASE MB 6.3 ng/mL (0-5.0)
--- NOTE | 2019-09-18 13:21 | NUR ---
PT OFF UNIT FOR CTA NECK IN SAFE CONDITION.
--- NOTE | 2019-09-18 13:40 | NUR ---
PT IS BACK TO THE UNIT FROM RADIOLOGY. PT DENIES NEEDS AT THIS TIME.
[2019-09-18] MEDS: ACETAMINOPHEN/CODEINE 300MG - 30MG TAB PO PRN ×2 (13:49→22:20)
--- NOTE | 2019-09-18 14:20 | Consultation ---
DATE OF CONSULTATION: Cardiology Consultation REASON FOR CONSULTATION: Dizziness. HISTORY OF PRESENT ILLNESS: This is a 64-year-old man with history of arthritis, hyperlipidemia, and potentially subclavian stenosis. He presents with dizziness, worse with standing, ambulation, and head turning. Also with occasional right arm use, he will get dizzy. I have seen this patient previously in my office and his echocardiogram and stress test were normal. His carotid Doppler suggested subclavian steal syndrome, however, he was lost to follow up. REVIEW OF SYSTEMS: A 12-point review of system was conducted and is negative except as stated above in the HPI. PAST FAMILY HISTORY: Noncontributory to current illness. PAST MEDICAL HISTORY: As stated above in the HPI. PAST SOCIAL HISTORY: No illicit drug, alcohol, or tobacco use. ALLERGIES: NO KNOWN DRUG ALLERGIES. MEDICATIONS: See medication reconciliation form. PHYSICAL EXAMINATION: VITAL SIGNS: Temperature is 96.9, heart rate is 74, respirations 18, blood pressure is 107/58, and oxygen saturation is 94% on room air. GENERAL: Well-appearing, well-built, in no apparent distress. Alert and oriented x3. HEAD: Normocephalic and atraumatic. EYES: The extraocular muscles are intact. Conjunctivae clear. NECK: No JVD. No bruits. CARDIOVASCULAR: He has regular rate and rhythm. No murmurs. LUNGS: Clear to auscultation. ABDOMEN: Soft, nontender, and nondistended. EXTREMITIES: No edema. His right radial pulse is diminished compared to his left radial pulse. NEUROLOGIC: No focal deficits noted. Cranial nerves appear intact. PSYCHIATRIC: Normal mood and affect. LABORATORY DATA: Reviewed. Hemoglobin is 14.2 and platelet count is 71. Creatinine is 1.02. His troponins are negative x2. Chest x-ray shows bibasilar atelectasis. Head CT shows no acute intracranial process. His 12-lead electrocardiogram shows normal sinus rhythm with a right bundle branch block. His echocardiogram showed preserved left ventricular systolic function and normal valves. Telemetry monitoring revealed normal sinus rhythm. IMPRESSION: 1. Dizziness. 2. Possible subclavian steal syndrome. 3. Thrombocytopenia. 4. Arthritis. 5. Hyperlipidemia. 6. Vertigo. RECOMMENDATIONS: Continue meclizine for control symptoms. Resume home cardiovascular medications. We will need to evaluate the cause for his thrombocytopenia per primary care team and possibly Hematology. I am going to order a CTA of the chest and neck to assess his right subclavian artery. If he truly has subclavian steal syndrome, we will likely need to perform percutaneous intervention to prevent ongoing symptoms. He also will potentially need to see ENT as an outpatient. DO TIMMY Verdin/KAILEY /[id number]
--- NOTE | 2019-09-18 14:28 | Diagnostic Imaging Report ---
EXAMINATION: CT angiogram of the neck CLINICAL HISTORY: Dizziness. Possible subclavian steal syndrome. COMPARISON STUDIES: None TECHNIQUE: Axial images were obtained from the thoracic inlet. Coronal and sagittal images reconstructed from the axial data. For optimization of of anatomic evaluation, multi-planar reconstructions, maximum intensity projections, and advanced 3D off-line post-processing was obtained and performed on a dedicated stand-alone workstation under the direct supervision of the interpreting physician. Intravenous contrast: 100 mL of Omnipaque 300. Dose modulation, iterative reconstruction, and/or weight based adjustment of the mA/kV was utilized to reduce the radiation dose to as low as reasonably achievable. FINDINGS: If present, stenosis of the carotid bulbs is measured based on NASCET criteria i.e area of maximum stenosis compared to the cervical ICA distal to the bulb. Aortic arch and major vessels: Soft and calcified plaque at the origin of the right vertebral artery results in [id number] stenosis. Prominent soft and calcified plaque in the right subclavian artery near the origin, with probable moderate stenoses (limited evaluation due to streak artifact and x-ray beam attenuation), there is however distal reconstitution of the subclavian artery, which may be retrograde from the vertebral artery. The origin of the left vertebral and bilateral carotid arteries is patent. Common carotid arteries: Right: Patent. No abnormalities. Left :Patent. No abnormalities. Carotid bulbs: Right: Minimal soft and calcified plaque without stenoses (0%). Left :Minimal soft and calcified plaque without stenosis (0%). Internal carotid arteries: Right: Patent. No abnormalities. Left: Patent. No abnormalities. Vertebral arteries: Poor opacification of the entire right vertebral artery particularly the V2 and V3 segments, there is distal reconstitution of the intracranial V4 segment. This may be related to above-mentioned right subclavian artery and origin of the right vertebral artery atherosclerosis and narrowing, the opacification of the intracranial segment may occur through retrograde flow from the basilar artery. IMPRESSION: 1. Poor opacification of the right vertebral artery may be related to subclavian steal syndrome given stenoses in the proximal right subclavian artery and/or from mild to moderate stenosis at the origin of the right vertebral artery as detailed above. 2. There is distal, likely retrograde reconstitution of the intracranial right vertebral artery. 3. Minimal atherosclerosis of the bilateral carotid bulbs without associated stenosis (0%). Signed by: Dr. Lillian Bedoya M.D. on 09/18/2019 2:25 PM
[2019-09-18] MEDS ORDERED: SODIUM CHLORIDE 0.9% 50ML 50 ML ONE (15:08)
[2019-09-18] MEDS ORDERED: IOPAMIDOL 370 MG/ML 200 ML INFUS..BTL INJ ONE (15:08)
--- NOTE | 2019-09-18 19:19 | NUR ---
BEDSIDE SHIFT REPORT GIVEN TO THE EAR NOSE THROAT SURGEON RN. PT DENIED FURTHER NEEDS.
[2019-09-19] VITALS (8 sets, daily range): BP systolic 101–125; BP diastolic 60–66
[2019-09-19] MEDS: PANTOPRAZOLE SOD 40 MG TABEC PO SCH (05:53)
[2019-09-19] MEDS: MECLIZINE HCL 12.5 MG TAB PO SCH ×3 (05:53→21:25)
--- NOTE | 2019-09-19 05:57 | NUR ---
Progress note- IM O/N see below ROS: no f/c/s/cp/sob/skin rash/leg pain/focal limb weakness/confusion v/s revd PE tired appearing; lying in bed, unable to sit up. eyes slightly closed. anicteric ns1s2 mod bs soft nt nd no e/t skin dry flat affect labs/med revd A/P; BPPV- start meclizine; orthostatic V/S negative Dizziness RIght carotid stenosis- cardio eval GERD- ppi Nicotine dependece in remission- no active use Prop: scd; ppi Dipso: check orthostatic v/s; PT consult 5-6-20 Hypotensive- continue IVF; THrombocytopenia- avoid heparin prods. cont meclizine; PT eval 5-7 Proximal right subclavian stenosis, with right vertebral artery opacificatio- possible Subclavian steal syndrome; THrombocytopenia- hematology to eval. Juventino Martinez MD, PhD.
[2019-09-19] MEDS: SODIUM CHLORIDE 0.9% 1000ML 1,000 ML IV SCH ×3 (06:37→21:25)
--- NOTE | 2019-09-19 07:00 | NUR ---
BEDSIDE SHIFT REPORT RECEIVED FORM THE LEAN MANUFACTURING ENGINEER RN. EDUCATED PT ABOUT FALL PRECAUTIONS. PT VERBALIZED UNDERSTANDING. CALL LIGHT WITH IN EASY REACH. INSTRUCTED PT TO USE CALL LIGHT FOR ALL THE NEEDS. BED IS LOW AND LOCKED. SIDE RAILS X2. BED ALARM IS ON. PT DENIES NEEDS AT THIS TIME.
[2019-09-19] MEDS: ACETAMINOPHEN/CODEINE 300MG - 30MG TAB PO PRN ×2 (07:54→16:29)
[2019-09-19] MEDS: ASPIRIN 325 MG TAB PO SCH (08:06)
[2019-09-19] MEDS: FENOFIBRATE 145 MG TAB PO SCH (08:06)
--- NOTE | 2019-09-19 11:05 | NUR ---
Pt. expressed no spiritual or emotional concerns at this time. Accounting Instructor provided hospitality and information on how to reach boat cleaner, if needed. No need to follow at this time. Accounting Instructor Spiritual Care Department O: [phone]
--- NOTE | 2019-09-19 11:14 | Diagnostic Imaging Report ---
EXAM: US ABDOMEN COMPLETE DATE: 09/19/2019 10:12 AM INDICATION: Hepatic cirrhosis COMPARISON: None TECHNIQUE: Transverse and longitudinal palmer scale and color doppler sonographic images of the upper abdomen were obtained. FINDINGS: LIVER 12.0 cm in the right midclavicular line. Coarse echogenicity of the liver with mildly nodular surface contour, no masses. SPLEEN 13.8 cm in maximum diameter. Normal echogenicity, no masses. GALLBLADDER Status post cholecystectomy. BILE DUCTS No intra nor extra-hepatic biliary dilation. Common bile duct measures 3mm PANCREAS: Visualized portions are normal. RIGHT KIDNEY: 9.4 cm Echogenicity: Normal Collecting System: No hydronephrosis Stones: None Cyst/Mass: None LEFT KIDNEY: 12.0 cm Echogenicity: Normal Collecting System: No hydronephrosis Stones: None Cyst/Mass: 8 mm mid pole cyst. VESSELS: Aorta: Visualized portions are within normal size limits Inferior Vena Cava: Visualized portions are normal Main Portal Vein: 0.8 cm, normal size with hepatopetal flow. FREE FLUID: None IMPRESSION: Coarse echogenicity of the liver with mildly nodular surface contour compatible with hepatic cirrhosis. Splenomegaly. Signed by: Daisy Casey MD on 09/19/2019 11:10 AM
[2019-09-19 12:52] LABS: BASOPHILS % 0.3 % (0.0-1.0); EOSINOPHILS % 1.3 % (0.0-6.0); HEMATOCRIT 44.4 % (38.2-49.6); HEMOGLOBIN 15.1 g/dL (14.0-18.0); LYMPHOCYTES # (AUTO) 1.4 (1.0-3.2); LYMPHOCYTES % 44.7 % (18.0-39.1); MEAN CORPUSCULAR HEMOGLOBIN 33.5 pg (28-32); MEAN CORPUSCULAR VOLUME 98.4 fL (81-99); MONOCYTES # (AUTO) 0.4 (0.2-0.8); MONOCYTES % 12.5 % (4.4-11.3); NEUTROPHILS # (AUTO) 1.3 (2.1-6.9); NEUTROPHILS % 41.2 % (38.7-80.0); PLATELET COUNT 68 x10e3/uL (140-360); RED BLOOD COUNT 4.51 x10e6/uL (4.3-5.7); RED CELL DISTRIBUTION WIDTH 12.4 % (11.7-14.4)
--- NOTE | 2019-09-19 19:16 | NUR ---
BEDSIDE SHIFT REPORT GIVEN TO THE QUALITY ASSURANCE MONITOR CHASSIS RN. PT DENIED FURTHER NEEDS.
--- NOTE | 2019-09-19 21:33 | NUR ---
Received pt in bed awake a/o x 4, no s/sx of distress noted. Pt IVF infusing no diff. Call light and personal items within reach. Verbalized understanding regarding NPO after midnight. Will cont to mon
--- NOTE | 2019-09-19 22:24 | NUR ---
Cardiac CT Angiogram [facility] Interactive Patient Education given to patient, per request and noted questions regarding procedure
[2019-09-20] VITALS (9 sets, daily range): BP systolic 87–146; BP diastolic 54–99
[2019-09-20 05:14] LABS: BASOPHILS % 0.7 % (0.0-1.0); EOSINOPHILS # (AUTO) 0.1 (0.0-0.4); EOSINOPHILS % 1.6 % (0.0-6.0); HEMATOCRIT 41.9 % (38.2-49.6); HEMOGLOBIN 14.6 g/dL (14.0-18.0); LYMPHOCYTES # (AUTO) 1.6 (1.0-3.2); LYMPHOCYTES % 51.5 % (18.0-39.1); MEAN CORPUSCULAR HEMOGLOBIN 34.4 pg (28-32); MEAN CORPUSCULAR HGB CONC 34.8 g/dL (31-35); MEAN CORPUSCULAR VOLUME 98.8 fL (81-99); MONOCYTES # (AUTO) 0.4 (0.2-0.8); MONOCYTES % 12.8 % (4.4-11.3); NEUTROPHILS % 33.1 % (38.7-80.0); PLATELET COUNT 69 x10e3/uL (140-360); RED BLOOD COUNT 4.24 x10e6/uL (4.3-5.7)
[2019-09-20] MEDS: SODIUM CHLORIDE 0.9% 1000ML 1,000 ML IV SCH (05:16)
[2019-09-20] MEDS: MECLIZINE HCL 12.5 MG TAB PO SCH ×2 (05:17→13:28)
--- NOTE | 2019-09-20 05:20 | NUR ---
Pt awake aox3. No c/o at this time. Pt up to shower, remains npo for sched procedure this am. No s/sx distress noted. Will pass report on to oncoming staff.
--- NOTE | 2019-09-20 07:00 | NUR ---
BEDSIDE REPORT RECEIVED PT IN STABLE CONDITION, DENIES PAIN AT THIS TIME, UPDATED ON POC VOICED UNDERSTANDING, CALL LIGHT IN REACH WILL CONTINUE TO MONITOR
--- NOTE | 2019-09-20 07:19 | NUR ---
DOWN TO URBAN SOCIOLOGIST FOR ANGIOGRAM, LEFT IN STABLE CONDITION
[2019-09-20] MEDS ORDERED: HEPARIN SOD (PORCINE) 1000 UNIT/ML 30ML ONE (07:24)
[2019-09-20] MEDS ORDERED: MIDAZOLAM HCL 2 MG/2 ML VIAL ONE (07:24)
[2019-09-20] MEDS ORDERED: FENTANYL CITRATE/PF 100MCG/2 ML INJ ONE (07:25)
[2019-09-20] MEDS ORDERED: LIDOCAINE HCL 2% LOCAL 20 ML VIAL ONE (07:25)
[2019-09-20] MEDS ORDERED: HEPARIN SOD/SOD CHLORIDE 2,000 ML ONE (07:26)
[2019-09-20] MEDS ORDERED: IOPAMIDOL 370 MG/ML 200 ML INFUS..BTL INJ ONE (07:27)
[2019-09-20] MEDS ORDERED: SODIUM CHLORIDE 0.9% 1000ML 1,000 ML ONE (07:27)
[2019-09-20] MEDS ORDERED: NITROGLYCERIN/D5W 200 MCG/ML 0 ML ONE (07:27)
--- NOTE | 2019-09-20 07:50 | NUR ---
D/C SUmmary Principal Dx: BPPV- start meclizine; orthostatic V/S negative Secondary Dx: RIght carotid stenosis- cardio eval GERD- ppi Nicotine dependece in remission- no active use Prop: scd; ppi Dipso: check orthostatic v/s; PT consult 5-6-20 Hypotensive- continue IVF; THrombocytopenia- avoid heparin prods. cont meclizine; PT eval 5-7 Proximal right subclavian stenosis, with right vertebral artery opacificatio- possible Subclavian steal syndrome; THrombocytopenia- hematology to eval. 5-8 Liver cirrhosis as likely cause of low plts. d/c home stable f/u pcp 1 week and cardiology 1 week d/c>35mins Juventino Martinez MD, PhD.
--- NOTE | 2019-09-20 08:45 | NUR ---
back to rm, dsg to r groin c/d/i, soft, tender to touch, pedal pulses palpable,pt sleepy but easily awakens, urinated clear yellow urine,instructed on complete bedrest, voiced understanding no other co voiced call light in reach will continue to monitor
[2019-09-20] MEDS: ASPIRIN 325 MG TAB PO SCH (09:00)
[2019-09-20] MEDS: FENOFIBRATE 145 MG TAB PO SCH (09:00)
--- NOTE | 2019-09-20 09:01 | Progress Note ---
DATE: Cardiology Progress Note SUBJECTIVE: The patient reports mild improvement in his dizziness. No chest pain or shortness of breath. OBJECTIVE: VITAL SIGNS: Temperature is 96.9, heart rate is 60, respirations are 18, blood pressure is 122/66, oxygen saturation 97% on room air. GENERAL: Well appearing, well built, no apparent distress. Alert and oriented x3. CARDIOVASCULAR: Regular rate and rhythm. LUNGS: Clear to auscultation. ABDOMEN: Soft, nontender, nondistended. EXTREMITIES: Diminished right radial pulse. LABORATORY DATA: Reviewed. Reveals thrombocytopenia. Last platelet was 71. CT angiogram of the neck showed moderate to severe stenosis of the origin of the subclavian just distal to the right carotid artery and moderate to severe stenosis of the origin of the right vertebral artery with poststenotic dilatation of the subclavian artery. No significant carotid artery disease was found. Telemetry monitoring revealed normal sinus rhythm with a right bundle branch block. IMPRESSION: 1. Subclavian steal syndrome. 2. Atherosclerosis of the subclavian and right vertebral arteries, dizziness. 3. Thrombocytopenia. 4. Arthritis. 5. Hyperlipidemia. 6. Cirrhosis. 7. Vertigo. RECOMMENDATIONS: Continue meclizine. Workup for his thrombocytopenia is ongoing. If his platelets continue to be above 50, I would like to perform a conventional angiogram of the right subclavian artery to further delineate his anatomy to see if he is a candidate for endovascular intervention versus open surgery. I will continue to follow along with you. DO TIMMY Verdin/REJIL /[id number]
[2019-09-20] MEDS: ACETAMINOPHEN/CODEINE 300MG - 30MG TAB PO PRN ×2 (11:01→19:19)
--- NOTE | 2019-09-20 16:20 | NUR ---
Discontinuing PT services since patient is independent/mod I in functional mobility. Thank you Addendum: 09/20/19 at 1621 by Brad piañ PT Amended: Links added.
[2019-09-20] MEDS ORDERED: Meclizine Hcl PO (17:28)
--- NOTE | 2019-09-20 20:34 | Consultation ---
DATE OF CONSULTATION: Consultation to Dr. Juventino Christianson. HISTORY OF PRESENT ILLNESS: Mr. Lomeli is a 64-year-old white male, who has been referred to me for evaluation of thrombocytopenia. SOCIAL HISTORY: Noncontributory. FAMILY HISTORY: Noncontributory. ALLERGIES: REPORTED NONE. MEDICATIONS: At this time, consists of. 1. Sodium chloride. 2. Fenofibrate. 3. Protonix. 4. Aspirin. 5. Ondansetron. 6. Docusate. 7. . 8. Meclizine. 9. Tylenol with codeine. PHYSICAL EXAMINATION: GENERAL: A moderately built male, no palpable adenopathy. HEART: Within normal limits. LUNGS: Clear. ABDOMEN: Obese. RECTAL: Deferred. CENTRAL NERVOUS SYSTEM: Essentially normal. EXTREMITIES: Essentially normal. REVIEW OF SYSTEMS: CARDIAC: History of right subclavian artery stenosis. RESPIRATORY: Normal. GI: Had a liver biopsy 25 years back, was reported to be a fibrotic liver biopsy. MUSCULOSKELETAL: Rheumatoid arthritis and psoriatic arthritis, taking Remicade. LABORATORY DATA: Shows a hemoglobin of 14.2, hematocrit 41.3, white count of 3700, and platelets of 71,000. BUN 9, creatinine 1.0, sodium 140, potassium 3.9, chloride 111, CO2 of 21. IMPRESSION: 1. Thrombocytopenia. 2. Hypoproteinemia. 3. Hypoalbuminemia. 4. Hyperglobulinemia. 5. Urine opiates positive. 6. Bibasilar atelectasis by chest x-ray. 7. Right subclavian artery stenosis by CAT scan. 8. Cirrhotic liver. 9. Psoriatic arthritis. 10. Rheumatoid arthritis. PLAN, COMMENTS, AND SUGGESTIONS: Repeat the ultrasound and alpha-fetoprotein. The ultrasound does not show any evidence so far of hepatoma. Alpha-fetoprotein is 3.5. He could be discharged, I will be more than happy to follow this patient as the attending would call and make an appointment with me. MD GORDON Brito/KAILEY /[id number] cc: MD Ty Gates DO
--- NOTE | 2019-09-20 21:17 | NUR ---
PATIENT ESCORTED TO PRIVATE VEHICLE BY BALA Lay RN. AAOX3. NO ADVERSE SIGNS. PULSES PALPABLE TO BILATERAL UPPER AND LOWER EXTREMITIES.
--- NOTE | 2019-09-23 09:53 | Progress Note ---
DATE: Cardiology progress note. SUBJECTIVE: The patient still reports occasional dizziness, however, that is improved. OBJECTIVE: VITAL SIGNS: Temperature is 96.8, heart rate is 69, respirations are 18, blood pressure is 120/70, and oxygen saturation 98% on room air. GENERAL: Well-appearing in no apparent distress. CARDIOVASCULAR: Regular rate and rhythm. LUNGS: Clear to auscultation. ABDOMEN: Soft, nontender, nondistended. EXTREMITIES: No edema. CARDIOVASCULAR MEDICATIONS: All cardiovascular medications reviewed. LABORATORY DATA: Reviewed. Platelets 269. White blood cell count is 3. IMPRESSION: 1. Moderate subclavian stenosis. 2. thrombocytopenia. 3. Arthritis. 4. Hyperlipidemia. 5. Vertigo. 6. Cirrhosis. RECOMMENDATIONS: Peripheral angiography today showed moderate subclavian stenosis. The lesion was crossed and pressures were measured on both sides and there was no significant gradient. No interventions are needed for this. Continue current cardiovascular medications. Continue workup for thrombocytopenia and leukopenia. We will continue to follow along. Kervin Duran DO BM/MODL /[id number]
--- NOTE | 2019-10-15 13:05 | Operative Report ---
DATE OF PROCEDURE: SURGEON: Kervin Duran DO PROCEDURES PERFORMED: 1. Conscious sedation, 30 minutes. 2. Third order peripheral extremity angiography, thoracic and above. PREPROCEDURE DIAGNOSIS: Possible subclavian steal syndrome. POSTPROCEDURE DIAGNOSIS: Moderate subclavian stenosis. ESTIMATED BLOOD LOSS: Less than 10 mL. SPECIMENS REMOVED: None. PROCEDURE IN DETAIL: After informed consent was obtained, the patient was brought to the cardiac catheterization laboratory in a fasting and nonsedated state. Bilateral groins were prepped and draped in the usual sterile fashion. Fentanyl and midazolam was administered by cardiac cath lab radiology technologist nurse and his physiologic status and conscious state was monitored by myself and the cardiac cath lab radiology technologist staff. A 2% lidocaine was infiltrated over the right anterior groin for local anesthesia. Using micropuncture needle, the right common femoral artery was accessed via modified Seldinger technique and a 5-Belarusian sheath was placed. Next, a JR4 catheter was taken into the right innominate artery and extremity angiography was performed. Next, over the wire, I crossed the catheter distally into the axillary artery and pressure was measured here. This was then pulled back and a pressure was measured in the aorta. There was no significant pressure gradient. It was less than 10 mmHg. Everything was removed. Hemostasis was achieved via Mynx device. The patient tolerated the procedure well. No immediate complications and was transferred to his room in stable condition. PROCEDURE FINDINGS: The subclavian artery has a 50% stenosis with less than 10 mm gradient. The right carotid artery is patent without obstruction. The vertebral artery was not well visualized. IMPRESSION: Moderate subclavian stenosis. RECOMMENDATIONS: This patient will need to be evaluated by ENT for benign positional vertigo as I do not think this subclavian stenosis is hemodynamically significant as a cause for his vertigo. Kervin Duran DO BM/MODL /[id number]
== END 2019-09-20 21:17 | disposition home or self-care (01) | DRG 300 ==
LOC: ER 17:06 → ERHOLD 18:44 → MED/SURG 19:34
PROVIDERS: ADMIT Internal Medicine; ATTEND Internal Medicine
PROC: B31H1ZZ Fluoroscopy of Right Upper Extremity Arteries using Low Osmolar Contrast (ICD-10-PCS; principal; 2019-09-20)
DX: I70.298 Other atherosclerosis of native arteries of extremities, other extremity (principal); J98.11 Atelectasis; G45.8 Other transient cerebral ischemic attacks and related syndromes; I65.21 Occlusion and stenosis of right carotid artery; H81.10 Benign paroxysmal vertigo, unspecified ear; K21.9 Gastro-esophageal reflux disease without esophagitis; Z87.891 Personal history of nicotine dependence; I95.9 Hypotension, unspecified; D69.6 Thrombocytopenia, unspecified; E78.5 Hyperlipidemia, unspecified; K74.60 Unspecified cirrhosis of liver; M06.9 Rheumatoid arthritis, unspecified; L40.50 Arthropathic psoriasis, unspecified; E77.8 Other disorders of glycoprotein metabolism; R77.1 Abnormality of globulin
CPT/HCPCS: 36225; 36415; 70450; 70498; 71045; 76700; 80053; 80307; 81001; 82105; 82140; 82550; 82553; 84484; 85025; 85610; 85730; 86704; 87522; 87635; 93005; 93306; 96361; 97139; 99152; 99153; 99284; C1760; C1769; J1644; J2001; J2250; J2405; J3010; J7030; Q9967

== ENCOUNTER 2021-01-20 03:46 | Inpatient (IN) | payer MEDICARE, OTHER ==
[~2021-01-20] VITALS: Ht 167.6 cm; Wt 80.9 kg
[~2021-01-20 03:46] MED LIST changes: +CYCLOBENZAPRINE10 MG PO; +FENOFIBRATE145 MG PO; +GABAPENTIN300 MG PO; +Meclizine Hcl PO; +tylenol #4 PO
[2021-01-20 04:25] LABS: HEMATOCRIT 44.8 % (38.2-49.6); HEMOGLOBIN 15.2 g/dL (14.0-18.0); LYMPHOCYTES # (AUTO) 0.8 (1.0-3.2); LYMPHOCYTES % 26.3 % (18.0-39.1); MEAN CORPUSCULAR HEMOGLOBIN 34.9 pg (28-32); MEAN CORPUSCULAR HGB CONC 33.9 g/dL (31-35); MEAN CORPUSCULAR VOLUME 102.8 fL (81-99); MONOCYTES # (AUTO) 0.3 (0.2-0.8); MONOCYTES % 10.9 % (4.4-11.3); NEUTROPHILS # (AUTO) 1.9 (2.1-6.9); NEUTROPHILS % 62.2 % (38.7-80.0); PLATELET COUNT 52 x10e3/uL (140-360); RED BLOOD COUNT 4.36 x10e6/uL (4.3-5.7); RED CELL DISTRIBUTION WIDTH 13.1 % (11.7-14.4)
[2021-01-20] MEDS ORDERED: DEXAMETHASONE SOD PHOS 10 MG/1 ML VIAL IV ONE (04:30)
[2021-01-20] MEDS ORDERED: ONDANSETRON HCL INJ 2MG/ML 2ML 2 MG/ML VIAL IV PRN (04:30)
[2021-01-20 04:35] LABS: ANION GAP 12.5 mmol/L (8-16); CALCIUM 8.4 mg/dL (8.4-10.2); CREATININE, SERUM 0.98 mg/dL (0.72-1.25); POTASSIUM 4.5 mmol/L (3.5-5.1)
[2021-01-20] MEDS ORDERED: DEXAMETHASONE SOD PHOS INJ 4 MG/ML SDV ONE (04:49)
[2021-01-20] MEDS: DEXAMETHASONE SOD PHOS 10 MG/1 ML VIAL IV SCH (09:00)
[2021-01-20] MEDS: ONDANSETRON HCL INJ 2MG/ML 2ML 2 MG/ML VIAL IV PRN ×2 (11:05→20:08)
[2021-01-20] MEDS: ZINC SULFATE 220 MG CAP PO SCH (11:05)
[2021-01-20] MEDS: CEFTRIAXONE 1 GM in SODIUM CHLORIDE 0.9% 50ML 50 ML IV SCH (11:05)
[2021-01-20] MEDS: ASCORBIC ACID 500 MG TAB PO SCH ×2 (11:05→17:38)
[2021-01-20] MEDS: ENOXAPARIN 30 MG/0.3 ML SYR SC SCH ×2 (11:05→19:55)
[2021-01-20] MEDS: ACETAMINOPHEN/CODEINE 300MG - 30MG TAB PO PRN ×2 (15:24→23:40)
[2021-01-20] MEDS ORDERED: REMDESIVIR 200MG 200 MG in SODIUM CHLORIDE 0.9% 100 ML IV ONE (17:30)
[2021-01-20] MEDS: CYCLOBENZAPRINE HCL 10 MG TAB PO SCH (19:55)
[2021-01-21] VITALS (11 sets, daily range): BP systolic 89–120; BP diastolic 59–85
[2021-01-21] MEDS ORDERED: SODIUM CHLORIDE 0.9% 250ML 250 ML ONE (08:29)
[2021-01-21] MEDS ORDERED: OMEPRAZOLE 20 MG CAP PO SCH (09:00)
[2021-01-21] MEDS: PANTOPRAZOLE SOD 40 MG TABEC PO SCH (09:05)
[2021-01-21] MEDS: FENOFIBRATE 145 MG TAB PO SCH (09:06)
[2021-01-21] MEDS: CEFTRIAXONE 1 GM in SODIUM CHLORIDE 0.9% 50ML 50 ML IV SCH (09:06)
[2021-01-21] MEDS: DEXAMETHASONE SOD PHOS 10 MG/1 ML VIAL IV SCH (09:06)
[2021-01-21] MEDS: ASCORBIC ACID 500 MG TAB PO SCH ×2 (09:07→16:44)
[2021-01-21] MEDS: ENOXAPARIN 30 MG/0.3 ML SYR SC SCH ×2 (09:07→20:24)
[2021-01-21] MEDS: GABAPENTIN 300 MG CAP PO PRN (09:08)
[2021-01-21] MEDS: BENZONATATE 100 MG CAP PO PRN (09:08)
[2021-01-21] MEDS: ZINC SULFATE 220 MG CAP PO SCH (09:25)
[2021-01-21 11:35] LABS: ANION GAP 13.5 mmol/L (8-16); CALCIUM 8.3 mg/dL (8.4-10.2); CREATININE, SERUM 0.98 mg/dL (0.72-1.25); POTASSIUM 4.5 mmol/L (3.5-5.1)
[2021-01-21] MEDS ORDERED: SODIUM CHLORIDE 0.9% 50ML 50 ML ONE (13:44)
[2021-01-21] MEDS ORDERED: IOPAMIDOL 370 MG/ML 200 ML INFUS..BTL INJ ONE (13:44)
[2021-01-21 14:09] LABS: BASOPHILS % 0.1 % (0.0-1.0); HEMATOCRIT 47.5 % (38.2-49.6); HEMOGLOBIN 15.8 g/dL (14.0-18.0); LYMPHOCYTES # (AUTO) 0.7 (1.0-3.2); LYMPHOCYTES % 9.6 % (18.0-39.1); MEAN CORPUSCULAR HEMOGLOBIN 34.9 pg (28-32); MEAN CORPUSCULAR HGB CONC 33.3 g/dL (31-35); MEAN CORPUSCULAR VOLUME 104.9 fL (81-99); MONOCYTES # (AUTO) 0.7 (0.2-0.8); MONOCYTES % 10.3 % (4.4-11.3); NEUTROPHILS # (AUTO) 5.7 (2.1-6.9); NEUTROPHILS % 79.6 % (38.7-80.0); PLATELET COUNT 58 x10e3/uL (140-360); RED BLOOD COUNT 4.53 x10e6/uL (4.3-5.7); RED CELL DISTRIBUTION WIDTH 13.3 % (11.7-14.4)
[2021-01-21] MEDS: REMDESIVIR 100MG 100 MG in SODIUM CHLORIDE 0.9% 100 ML IV SCH (14:30)
[2021-01-21] MEDS: ACETAMINOPHEN/CODEINE 300MG - 30MG TAB PO PRN (15:24)
[2021-01-21] MEDS: CYCLOBENZAPRINE HCL 10 MG TAB PO SCH (20:24)
[2021-01-22] VITALS (13 sets, daily range): BP systolic 92–128; BP diastolic 51–68
[2021-01-22] MEDS: ACETAMINOPHEN/CODEINE 300MG - 30MG TAB PO PRN ×3 (01:00→19:48)
[2021-01-22] MEDS: ZINC SULFATE 220 MG CAP PO SCH (09:08)
[2021-01-22] MEDS: ENOXAPARIN 30 MG/0.3 ML SYR SC SCH ×2 (09:08→19:48)
[2021-01-22] MEDS: CEFTRIAXONE 1 GM in SODIUM CHLORIDE 0.9% 50ML 50 ML IV SCH (09:08)
[2021-01-22] MEDS: FENOFIBRATE 145 MG TAB PO SCH (09:08)
[2021-01-22] MEDS: DEXAMETHASONE SOD PHOS 10 MG/1 ML VIAL IV SCH (09:08)
[2021-01-22] MEDS: PANTOPRAZOLE SOD 40 MG TABEC PO SCH (09:08)
[2021-01-22] MEDS: ASCORBIC ACID 500 MG TAB PO SCH ×2 (09:08→16:10)
[2021-01-22] MEDS: REMDESIVIR 100MG 100 MG in SODIUM CHLORIDE 0.9% 100 ML IV SCH (14:16)
[2021-01-22] MEDS: CYCLOBENZAPRINE HCL 10 MG TAB PO SCH (19:48)
[2021-01-23] VITALS (22 sets, daily range): BP systolic 102–142; BP diastolic 54–103
[2021-01-23 05:08] LABS: HEMATOCRIT 39.9 % (38.2-49.6); HEMOGLOBIN 13.8 g/dL (14.0-18.0); LYMPHOCYTES # (AUTO) 0.5 (1.0-3.2); LYMPHOCYTES % 10.6 % (18.0-39.1); MEAN CORPUSCULAR HEMOGLOBIN 34.8 pg (28-32); MEAN CORPUSCULAR HGB CONC 34.6 g/dL (31-35); MEAN CORPUSCULAR VOLUME 100.8 fL (81-99); MONOCYTES # (AUTO) 0.4 (0.2-0.8); MONOCYTES % 9.5 % (4.4-11.3); NEUTROPHILS # (AUTO) 3.7 (2.1-6.9); NEUTROPHILS % 79.3 % (38.7-80.0); PLATELET COUNT 50 x10e3/uL (140-360); RED BLOOD COUNT 3.96 x10e6/uL (4.3-5.7); RED CELL DISTRIBUTION WIDTH 12.9 % (11.7-14.4)
[2021-01-23 05:30] LABS: ALBUMIN 2.3 g/dL (3.5-5.0); ALBUMIN/GLOBULIN RATIO 0.6 (0.8-2.0); ANION GAP 11.3 mmol/L (8-16); CALCIUM 7.8 mg/dL (8.4-10.2); CREATININE, SERUM 0.85 mg/dL (0.72-1.25); POTASSIUM 4.3 mmol/L (3.5-5.1)
[2021-01-23] MEDS: ACETAMINOPHEN/CODEINE 300MG - 30MG TAB PO PRN ×3 (06:00→23:45)
[2021-01-23] MEDS: PANTOPRAZOLE SOD 40 MG TABEC PO SCH (07:30)
[2021-01-23] MEDS: ASCORBIC ACID 500 MG TAB PO SCH ×2 (09:00→16:08)
[2021-01-23] MEDS: CEFTRIAXONE 1 GM in SODIUM CHLORIDE 0.9% 50ML 50 ML IV SCH (09:00)
[2021-01-23] MEDS: ZINC SULFATE 220 MG CAP PO SCH (09:00)
[2021-01-23] MEDS: ENOXAPARIN 30 MG/0.3 ML SYR SC SCH (09:00)
[2021-01-23] MEDS: DEXAMETHASONE SOD PHOS 10 MG/1 ML VIAL IV SCH (09:00)
[2021-01-23] MEDS: FENOFIBRATE 145 MG TAB PO SCH (09:00)
[2021-01-23] MEDS: BENZONATATE 100 MG CAP PO PRN (11:11)
[2021-01-23] MEDS: REMDESIVIR 100MG 100 MG in SODIUM CHLORIDE 0.9% 100 ML IV SCH (13:31)
[2021-01-23] MEDS: CYCLOBENZAPRINE HCL 10 MG TAB PO SCH (20:58)
[2021-01-24] VITALS (23 sets, daily range): BP systolic 92–146; BP diastolic 53–91
[2021-01-24 06:19] LABS: BASOPHILS % 0.2 % (0.0-1.0); HEMATOCRIT 42.8 % (38.2-49.6); HEMOGLOBIN 15.1 g/dL (14.0-18.0); LYMPHOCYTES # (AUTO) 0.7 (1.0-3.2); LYMPHOCYTES % 11.9 % (18.0-39.1); MEAN CORPUSCULAR HEMOGLOBIN 35.1 pg (28-32); MEAN CORPUSCULAR HGB CONC 35.3 g/dL (31-35); MEAN CORPUSCULAR VOLUME 99.5 fL (81-99); MONOCYTES # (AUTO) 0.6 (0.2-0.8); MONOCYTES % 10.8 % (4.4-11.3); NEUTROPHILS # (AUTO) 4.4 (2.1-6.9); NEUTROPHILS % 76.1 % (38.7-80.0); PLATELET COUNT 64 x10e3/uL (140-360); RED CELL DISTRIBUTION WIDTH 12.9 % (11.7-14.4)
[2021-01-24 06:43] LABS: ALBUMIN 2.6 g/dL (3.5-5.0); ALBUMIN/GLOBULIN RATIO 0.6 (0.8-2.0); CALCIUM 8.2 mg/dL (8.4-10.2); CREATININE, SERUM 0.94 mg/dL (0.72-1.25)
[2021-01-24] MEDS: ACETAMINOPHEN/CODEINE 300MG - 30MG TAB PO PRN ×3 (08:07→20:18)
[2021-01-24] MEDS: PANTOPRAZOLE SOD 40 MG TABEC PO SCH (08:07)
[2021-01-24] MEDS: ZINC SULFATE 220 MG CAP PO SCH (08:08)
[2021-01-24] MEDS: ASCORBIC ACID 500 MG TAB PO SCH ×2 (08:08→16:17)
[2021-01-24] MEDS: FENOFIBRATE 145 MG TAB PO SCH (08:08)
[2021-01-24] MEDS: CEFTRIAXONE 1 GM in SODIUM CHLORIDE 0.9% 50ML 50 ML IV SCH (08:08)
[2021-01-24] MEDS: DEXAMETHASONE SOD PHOS 10 MG/1 ML VIAL IV SCH (08:08)
[2021-01-24] MEDS: FONDAPARINUX SODIUM 5 MG/0.4 ML SYRINGE SQ SCH (08:08)
[2021-01-24] MEDS: REMDESIVIR 100MG 100 MG in SODIUM CHLORIDE 0.9% 100 ML IV SCH (13:09)
[2021-01-24] MEDS: CYCLOBENZAPRINE HCL 10 MG TAB PO SCH (20:18)
[2021-01-25] VITALS (25 sets, daily range): BP systolic 98–147; BP diastolic 49–90
[2021-01-25] MEDS: ACETAMINOPHEN/CODEINE 300MG - 30MG TAB PO PRN ×3 (03:00→19:40)
[2021-01-25] MEDS: PANTOPRAZOLE SOD 40 MG TABEC PO SCH (08:15)
[2021-01-25] MEDS: FONDAPARINUX SODIUM 5 MG/0.4 ML SYRINGE SQ SCH (08:16)
[2021-01-25] MEDS: DEXAMETHASONE SOD PHOS 10 MG/1 ML VIAL IV SCH (08:16)
[2021-01-25] MEDS: FENOFIBRATE 145 MG TAB PO SCH (08:16)
[2021-01-25] MEDS: ASCORBIC ACID 500 MG TAB PO SCH ×2 (08:16→16:19)
[2021-01-25] MEDS: CEFTRIAXONE 1 GM in SODIUM CHLORIDE 0.9% 50ML 50 ML IV SCH (08:16)
[2021-01-25] MEDS: ZINC SULFATE 220 MG CAP PO SCH (08:16)
[2021-01-25] MEDS: BARICITINIB 2 MG TABLET PO SCH (16:19)
[2021-01-25] MEDS: BENZONATATE 100 MG CAP PO PRN (19:40)
[2021-01-25] MEDS: GUAIFENESIN/CODEINE 5 ML LIQD PO PRN (19:40)
[2021-01-25] MEDS: CYCLOBENZAPRINE HCL 10 MG TAB PO SCH (20:32)
[2021-01-26] VITALS (23 sets, daily range): BP systolic 100–159; BP diastolic 55–93
[2021-01-26] MEDS: ACETAMINOPHEN 325 MG TAB PO PRN (01:32)
[2021-01-26 06:52] LABS: HEMOGLOBIN 14.7 g/dL (14.0-18.0); LYMPHOCYTES # (AUTO) 0.6 (1.0-3.2); LYMPHOCYTES % 13.5 % (18.0-39.1); MEAN CORPUSCULAR HEMOGLOBIN 34.4 pg (28-32); MEAN CORPUSCULAR VOLUME 98.4 fL (81-99); MONOCYTES # (AUTO) 0.6 (0.2-0.8); MONOCYTES % 12.8 % (4.4-11.3); NEUTROPHILS # (AUTO) 3.1 (2.1-6.9); NEUTROPHILS % 72.8 % (38.7-80.0); PLATELET COUNT 53 x10e3/uL (140-360); RED BLOOD COUNT 4.27 x10e6/uL (4.3-5.7); RED CELL DISTRIBUTION WIDTH 12.9 % (11.7-14.4)
[2021-01-26 07:15] LABS: ALBUMIN 2.3 g/dL (3.5-5.0); ALBUMIN/GLOBULIN RATIO 0.6 (0.8-2.0); ANION GAP 11.5 mmol/L (8-16); CALCIUM 7.9 mg/dL (8.4-10.2); CREATININE, SERUM 0.9 mg/dL (0.72-1.25); POTASSIUM 4.5 mmol/L (3.5-5.1)
[2021-01-26] MEDS: PANTOPRAZOLE SOD 40 MG TABEC PO SCH (07:30)
[2021-01-26] MEDS: FONDAPARINUX SODIUM 5 MG/0.4 ML SYRINGE SQ SCH (09:00)
[2021-01-26] MEDS: ASCORBIC ACID 500 MG TAB PO SCH ×2 (09:00→16:14)
[2021-01-26] MEDS: ZINC SULFATE 220 MG CAP PO SCH (09:00)
[2021-01-26] MEDS: CEFTRIAXONE 1 GM in SODIUM CHLORIDE 0.9% 50ML 50 ML IV SCH (09:00)
[2021-01-26] MEDS: BARICITINIB 2 MG TABLET PO SCH (09:00)
[2021-01-26] MEDS: FENOFIBRATE 145 MG TAB PO SCH (09:00)
[2021-01-26] MEDS: DEXAMETHASONE SOD PHOS 10 MG/1 ML VIAL IV SCH (09:00)
[2021-01-26] MEDS: ACETAMINOPHEN/CODEINE 300MG - 30MG TAB PO PRN (15:52)
[2021-01-26] MEDS: GABAPENTIN 300 MG CAP PO PRN (22:05)
[2021-01-26] MEDS: CYCLOBENZAPRINE HCL 10 MG TAB PO SCH (22:05)
[2021-01-27] VITALS (24 sets, daily range): BP systolic 117–162; BP diastolic 72–96
[2021-01-27 06:28] LABS: HEMATOCRIT 43.1 % (38.2-49.6); LYMPHOCYTES # (AUTO) 0.4 (1.0-3.2); LYMPHOCYTES % 8.2 % (18.0-39.1); MEAN CORPUSCULAR HEMOGLOBIN 34.9 pg (28-32); MEAN CORPUSCULAR HGB CONC 34.8 g/dL (31-35); MEAN CORPUSCULAR VOLUME 100.2 fL (81-99); MONOCYTES # (AUTO) 0.5 (0.2-0.8); MONOCYTES % 10.8 % (4.4-11.3); NEUTROPHILS % 80.6 % (38.7-80.0); RED CELL DISTRIBUTION WIDTH 12.7 % (11.7-14.4)
[2021-01-27 06:46] LABS: PLATELET COUNT 48 x10e3/uL (140-360)
[2021-01-27 06:47] LABS: ALBUMIN 2.4 g/dL (3.5-5.0); ALBUMIN/GLOBULIN RATIO 0.5 (0.8-2.0); ANION GAP 10.5 mmol/L (8-16); CALCIUM 7.8 mg/dL (8.4-10.2); CREATININE, SERUM 0.86 mg/dL (0.72-1.25); POTASSIUM 4.5 mmol/L (3.5-5.1)
[2021-01-27] MEDS: DEXAMETHASONE SOD PHOS 10 MG/1 ML VIAL IV SCH (08:14)
[2021-01-27] MEDS: BARICITINIB 2 MG TABLET PO SCH (08:14)
[2021-01-27] MEDS: FENOFIBRATE 145 MG TAB PO SCH (08:14)
[2021-01-27] MEDS: CEFTRIAXONE 1 GM in SODIUM CHLORIDE 0.9% 50ML 50 ML IV SCH (08:14)
[2021-01-27] MEDS: PANTOPRAZOLE SOD 40 MG TABEC PO SCH (08:14)
[2021-01-27] MEDS: FONDAPARINUX SODIUM 5 MG/0.4 ML SYRINGE SQ SCH (08:15)
[2021-01-27] MEDS: ZINC SULFATE 220 MG CAP PO SCH (08:15)
[2021-01-27] MEDS: ASCORBIC ACID 500 MG TAB PO SCH ×2 (08:15→16:24)
[2021-01-27] MEDS: ACETAMINOPHEN/CODEINE 300MG - 30MG TAB PO PRN (12:55)
[2021-01-27 13:20] LABS: INR 1.43; PROTHROMBIN TIME 17.7 seconds (11.9-14.5)
[2021-01-27 13:21] LABS: PARTIAL THROMBOPLASTIN TIME 47.4 seconds (23.8-35.5)
[2021-01-27] MEDS ORDERED: LACTATED RINGER'S 500 ML INJ ONE (17:00)
[2021-01-27] MEDS: CYCLOBENZAPRINE HCL 10 MG TAB PO SCH (20:49)
[2021-01-27] MEDS: GUAIFENESIN/CODEINE 5 ML LIQD PO PRN (20:49)
[2021-01-27] MEDS: ACETAMINOPHEN 325 MG TAB PO PRN (20:49)
[2021-01-28] VITALS (24 sets, daily range): BP systolic 105–168; BP diastolic 17–115
[2021-01-28] MEDS: GUAIFENESIN/CODEINE 5 ML LIQD PO PRN (03:46)
[2021-01-28] MEDS: ACETAMINOPHEN 325 MG TAB PO PRN (03:46)
[2021-01-28 04:58] LABS: HEMATOCRIT 45.6 % (38.2-49.6); HEMOGLOBIN 16.2 g/dL (14.0-18.0); LYMPHOCYTES # (AUTO) 0.5 (1.0-3.2); LYMPHOCYTES % 6.6 % (18.0-39.1); MEAN CORPUSCULAR HEMOGLOBIN 34.8 pg (28-32); MEAN CORPUSCULAR HGB CONC 35.5 g/dL (31-35); MEAN CORPUSCULAR VOLUME 98.1 fL (81-99); MONOCYTES # (AUTO) 0.8 (0.2-0.8); MONOCYTES % 12.1 % (4.4-11.3); NEUTROPHILS # (AUTO) 5.6 (2.1-6.9); NEUTROPHILS % 80.7 % (38.7-80.0); PLATELET COUNT 55 x10e3/uL (140-360); RED BLOOD COUNT 4.65 x10e6/uL (4.3-5.7); RED CELL DISTRIBUTION WIDTH 12.6 % (11.7-14.4)
[2021-01-28 05:28] LABS: ALBUMIN 2.7 g/dL (3.5-5.0); ALBUMIN/GLOBULIN RATIO 0.5 (0.8-2.0); ANION GAP 11.2 mmol/L (8-16); CALCIUM 8.2 mg/dL (8.4-10.2); CREATININE, SERUM 0.9 mg/dL (0.72-1.25); POTASSIUM 4.2 mmol/L (3.5-5.1)
[2021-01-28] MEDS: PANTOPRAZOLE SOD 40 MG TABEC PO SCH (07:30)
[2021-01-28 08:45] LABS: LYMPHOCYTES % (MANUAL) 5 % (19-48); MONOCYTES % (MANUAL) 8 % (3.4-9.0); NEUTROPHILS % (MANUAL) 87 % (40-74); PLATELET ESTIMATE MODERATELY DECREASED; PLATELET MORPHOLOGY COMMENT NORMAL; RBC MORPHOLOGY COMMENT NORMAL
[2021-01-28] MEDS: BARICITINIB 2 MG TABLET PO SCH (08:48)
[2021-01-28] MEDS: ASCORBIC ACID 500 MG TAB PO SCH ×2 (08:48→16:50)
[2021-01-28] MEDS: CEFTRIAXONE 1 GM in SODIUM CHLORIDE 0.9% 50ML 50 ML IV SCH (08:48)
[2021-01-28] MEDS: FONDAPARINUX SODIUM 5 MG/0.4 ML SYRINGE SQ SCH (08:48)
[2021-01-28] MEDS: FENOFIBRATE 145 MG TAB PO SCH (08:48)
[2021-01-28] MEDS: DEXAMETHASONE SOD PHOS 10 MG/1 ML VIAL IV SCH (08:48)
[2021-01-28] MEDS: ZINC SULFATE 220 MG CAP PO SCH (08:48)
[2021-01-28 11:56] LABS: ABG HCO3 25 mmol/L (22-26); ABG PCO2 37 mmHg (35-45); ABG PH 7.44 (7.35-7.45); ABG PO2 91 mmHg (80-105); ABG TCO2 27
[2021-01-28] MEDS: CYCLOBENZAPRINE HCL 10 MG TAB PO SCH (22:22)
[2021-01-29] VITALS (25 sets, daily range): BP systolic 110–154; BP diastolic 67–95
[2021-01-29] MEDS: ACETAMINOPHEN 325 MG TAB PO PRN ×2 (03:21→12:24)
[2021-01-29] MEDS: GABAPENTIN 300 MG CAP PO PRN (05:10)
[2021-01-29 05:44] LABS: BASOPHILS % 0.1 % (0.0-1.0); EOSINOPHILS % 0.2 % (0.0-6.0); HEMATOCRIT 47.1 % (38.2-49.6); HEMOGLOBIN 16.1 g/dL (14.0-18.0); LYMPHOCYTES # (AUTO) 0.6 (1.0-3.2); LYMPHOCYTES % 6.5 % (18.0-39.1); MEAN CORPUSCULAR HEMOGLOBIN 34.5 pg (28-32); MEAN CORPUSCULAR HGB CONC 34.2 g/dL (31-35); MEAN CORPUSCULAR VOLUME 100.9 fL (81-99); MONOCYTES # (AUTO) 1.3 (0.2-0.8); MONOCYTES % 14.5 % (4.4-11.3); NEUTROPHILS % 78.4 % (38.7-80.0); PLATELET COUNT 54 x10e3/uL (140-360); RED BLOOD COUNT 4.67 x10e6/uL (4.3-5.7); RED CELL DISTRIBUTION WIDTH 12.9 % (11.7-14.4)
[2021-01-29] MEDS: PANTOPRAZOLE SOD 40 MG TABEC PO SCH (08:17)
[2021-01-29] MEDS: ASCORBIC ACID 500 MG TAB PO SCH ×2 (08:17→16:02)
[2021-01-29] MEDS: FENOFIBRATE 145 MG TAB PO SCH (08:17)
[2021-01-29] MEDS: ZINC SULFATE 220 MG CAP PO SCH (08:18)
[2021-01-29] MEDS: BARICITINIB 2 MG TABLET PO SCH (08:18)
[2021-01-29] MEDS: CEFTRIAXONE 1 GM in SODIUM CHLORIDE 0.9% 50ML 50 ML IV SCH (08:21)
[2021-01-29] MEDS: FONDAPARINUX SODIUM 5 MG/0.4 ML SYRINGE SQ SCH (08:21)
[2021-01-29] MEDS: DEXAMETHASONE SOD PHOS 10 MG/1 ML VIAL IV SCH (08:21)
[2021-01-29] MEDS: HYDROCODONE/APAP 10MG-325MG TAB PO PRN ×2 (15:09→20:37)
[2021-01-29] MEDS: BENZONATATE 100 MG CAP PO PRN (20:37)
[2021-01-30] VITALS (25 sets, daily range): BP systolic 112–146; BP diastolic 66–96
[2021-01-30 05:06] LABS: BASOPHILS % 0.1 % (0.0-1.0); EOSINOPHILS % 0.4 % (0.0-6.0); HEMATOCRIT 46.4 % (38.2-49.6); HEMOGLOBIN 15.8 g/dL (14.0-18.0); LYMPHOCYTES # (AUTO) 0.5 (1.0-3.2); LYMPHOCYTES % 6.9 % (18.0-39.1); MEAN CORPUSCULAR HEMOGLOBIN 34.4 pg (28-32); MEAN CORPUSCULAR HGB CONC 34.1 g/dL (31-35); MEAN CORPUSCULAR VOLUME 101.1 fL (81-99); MONOCYTES # (AUTO) 0.9 (0.2-0.8); MONOCYTES % 11.3 % (4.4-11.3); NEUTROPHILS # (AUTO) 6.2 (2.1-6.9); RED BLOOD COUNT 4.59 x10e6/uL (4.3-5.7); RED CELL DISTRIBUTION WIDTH 12.8 % (11.7-14.4)
[2021-01-30 05:09] LABS: PLATELET COUNT 46 x10e3/uL (140-360)
[2021-01-30 05:24] LABS: ALBUMIN 2.4 g/dL (3.5-5.0); ALBUMIN/GLOBULIN RATIO 0.5 (0.8-2.0); ANION GAP 11.3 mmol/L (8-16); CALCIUM 8.2 mg/dL (8.4-10.2); CREATININE, SERUM 0.81 mg/dL (0.72-1.25); POTASSIUM 4.3 mmol/L (3.5-5.1)
[2021-01-30] MEDS: PANTOPRAZOLE SOD 40 MG TABEC PO SCH (08:05)
[2021-01-30] MEDS: ZINC SULFATE 220 MG CAP PO SCH (08:06)
[2021-01-30] MEDS: FONDAPARINUX SODIUM 5 MG/0.4 ML SYRINGE SQ SCH (08:06)
[2021-01-30] MEDS: DEXAMETHASONE SOD PHOS 10 MG/1 ML VIAL IV SCH (08:06)
[2021-01-30] MEDS: BARICITINIB 2 MG TABLET PO SCH (08:06)
[2021-01-30] MEDS: FENOFIBRATE 145 MG TAB PO SCH (08:06)
[2021-01-30] MEDS: ASCORBIC ACID 500 MG TAB PO SCH ×2 (08:06→17:18)
[2021-01-30] MEDS: HYDROCODONE/APAP 10MG-325MG TAB PO PRN (17:24)
[2021-01-30] MEDS: QUETIAPINE FUMARATE 25 MG TAB PO SCH (22:00)
[2021-01-30] MEDS: ACETAMINOPHEN 325 MG TAB PO PRN (22:45)
[2021-01-30] MEDS: BENZONATATE 100 MG CAP PO PRN (22:45)
[2021-01-31] VITALS (25 sets, daily range): BP systolic 95–146; BP diastolic 63–94
[2021-01-31] MEDS: HYDROCODONE/APAP 10MG-325MG TAB PO PRN ×2 (03:57→15:18)
[2021-01-31] MEDS: PANTOPRAZOLE SOD 40 MG TABEC PO SCH (08:15)
[2021-01-31] MEDS: DEXAMETHASONE SOD PHOS 10 MG/1 ML VIAL IV SCH (08:15)
[2021-01-31] MEDS: ASCORBIC ACID 500 MG TAB PO SCH ×2 (08:16→16:09)
[2021-01-31] MEDS: ZINC SULFATE 220 MG CAP PO SCH (08:16)
[2021-01-31] MEDS: FENOFIBRATE 145 MG TAB PO SCH (08:16)
[2021-01-31] MEDS: BARICITINIB 2 MG TABLET PO SCH (08:16)
[2021-01-31 12:04] LABS: BASOPHILS % 0.1 % (0.0-1.0); EOSINOPHILS % 0.5 % (0.0-6.0); HEMOGLOBIN 15.9 g/dL (14.0-18.0); LYMPHOCYTES # (AUTO) 0.5 (1.0-3.2); LYMPHOCYTES % 5.5 % (18.0-39.1); MEAN CORPUSCULAR HEMOGLOBIN 34.9 pg (28-32); MEAN CORPUSCULAR HGB CONC 34.6 g/dL (31-35); MEAN CORPUSCULAR VOLUME 100.9 fL (81-99); MONOCYTES # (AUTO) 0.4 (0.2-0.8); MONOCYTES % 5.3 % (4.4-11.3); NEUTROPHILS # (AUTO) 7.3 (2.1-6.9); NEUTROPHILS % 88.2 % (38.7-80.0); RED BLOOD COUNT 4.56 x10e6/uL (4.3-5.7); RED CELL DISTRIBUTION WIDTH 12.6 % (11.7-14.4)
[2021-01-31 12:05] LABS: PLATELET COUNT 50 x10e3/uL (140-360)
[2021-01-31] MEDS: QUETIAPINE FUMARATE 25 MG TAB PO SCH (21:00)
[2021-01-31] MEDS: ENOXAPARIN INJ 80 MG/0.8 ML SYR SC SCH (21:00)
[2021-02-01] VITALS (26 sets, daily range): BP systolic 101–138; BP diastolic 64–89
[2021-02-01] MEDS: HYDROCODONE/APAP 10MG-325MG TAB PO PRN ×3 (03:14→16:42)
[2021-02-01 05:19] LABS: EOSINOPHILS % 0.5 % (0.0-6.0); HEMATOCRIT 42.2 % (38.2-49.6); HEMOGLOBIN 15.3 g/dL (14.0-18.0); LYMPHOCYTES # (AUTO) 0.5 (1.0-3.2); LYMPHOCYTES % 6.8 % (18.0-39.1); MEAN CORPUSCULAR HEMOGLOBIN 35.7 pg (28-32); MEAN CORPUSCULAR HGB CONC 36.3 g/dL (31-35); MEAN CORPUSCULAR VOLUME 98.6 fL (81-99); MONOCYTES # (AUTO) 0.9 (0.2-0.8); MONOCYTES % 12.5 % (4.4-11.3); NEUTROPHILS # (AUTO) 5.9 (2.1-6.9); NEUTROPHILS % 79.7 % (38.7-80.0); RED BLOOD COUNT 4.28 x10e6/uL (4.3-5.7); RED CELL DISTRIBUTION WIDTH 12.3 % (11.7-14.4)
[2021-02-01 05:34] LABS: ALBUMIN 2.3 g/dL (3.5-5.0); ALBUMIN/GLOBULIN RATIO 0.5 (0.8-2.0); ANION GAP 10.1 mmol/L (8-16); CALCIUM 8.2 mg/dL (8.4-10.2); CREATININE, SERUM 0.7 mg/dL (0.72-1.25); POTASSIUM 4.1 mmol/L (3.5-5.1)
[2021-02-01 05:35] LABS: PLATELET COUNT 37 x10e3/uL (140-360)
[2021-02-01 08:06] LABS: LYMPHOCYTES % (MANUAL) 5 % (19-48); MONOCYTES % (MANUAL) 10 % (3.4-9.0); NEUTROPHILS % (MANUAL) 85 % (40-74)
[2021-02-01 08:07] LABS: PLATELET ESTIMATE MODERATELY DECREASED; PLATELET MORPHOLOGY COMMENT NORMAL; RBC MORPHOLOGY COMMENT NORMAL
[2021-02-01] MEDS: ENOXAPARIN INJ 80 MG/0.8 ML SYR SC SCH (09:27)
[2021-02-01] MEDS: ZINC SULFATE 220 MG CAP PO SCH (09:27)
[2021-02-01] MEDS: ASCORBIC ACID 500 MG TAB PO SCH ×2 (09:27→16:42)
[2021-02-01] MEDS: PANTOPRAZOLE SOD 40 MG TABEC PO SCH (09:27)
[2021-02-01] MEDS: DEXAMETHASONE SOD PHOS 10 MG/1 ML VIAL IV SCH (09:27)
[2021-02-01] MEDS: BARICITINIB 2 MG TABLET PO SCH (09:27)
[2021-02-01] MEDS: FENOFIBRATE 145 MG TAB PO SCH (09:27)
[2021-02-01 17:06] LABS: INR 1.12; PROTHROMBIN TIME 14.6 seconds (11.9-14.5)
[2021-02-01 17:08] LABS: PARTIAL THROMBOPLASTIN TIME 51.4 seconds (23.8-35.5)
[2021-02-01] MEDS: QUETIAPINE FUMARATE 25 MG TAB PO SCH (21:13)
[2021-02-02] VITALS (23 sets, daily range): BP systolic 92–155; BP diastolic 50–100
[2021-02-02] MEDS: HYDROCODONE/APAP 10MG-325MG TAB PO PRN ×3 (01:45→18:22)
[2021-02-02 05:06] LABS: BASOPHILS % 0.1 % (0.0-1.0); EOSINOPHILS # (AUTO) 0.1 (0.0-0.4); EOSINOPHILS % 0.4 % (0.0-6.0); HEMATOCRIT 44.2 % (38.2-49.6); HEMOGLOBIN 15.3 g/dL (14.0-18.0); LYMPHOCYTES # (AUTO) 0.8 (1.0-3.2); LYMPHOCYTES % 6.9 % (18.0-39.1); MEAN CORPUSCULAR HEMOGLOBIN 35.1 pg (28-32); MEAN CORPUSCULAR HGB CONC 34.6 g/dL (31-35); MEAN CORPUSCULAR VOLUME 101.4 fL (81-99); MONOCYTES # (AUTO) 1.4 (0.2-0.8); MONOCYTES % 11.5 % (4.4-11.3); NEUTROPHILS # (AUTO) 9.5 (2.1-6.9); NEUTROPHILS % 80.5 % (38.7-80.0); RED BLOOD COUNT 4.36 x10e6/uL (4.3-5.7); RED CELL DISTRIBUTION WIDTH 12.3 % (11.7-14.4)
[2021-02-02 05:11] LABS: PLATELET COUNT 46 x10e3/uL (140-360)
[2021-02-02 05:26] LABS: ALBUMIN 2.2 g/dL (3.5-5.0); ALBUMIN/GLOBULIN RATIO 0.5 (0.8-2.0); CALCIUM 8.6 mg/dL (8.4-10.2); CREATININE, SERUM 0.83 mg/dL (0.72-1.25)
[2021-02-02] MEDS: ASCORBIC ACID 500 MG TAB PO SCH ×2 (11:59→18:11)
[2021-02-02] MEDS: BARICITINIB 2 MG TABLET PO SCH (11:59)
[2021-02-02] MEDS: FENOFIBRATE 145 MG TAB PO SCH (11:59)
[2021-02-02] MEDS: ZINC SULFATE 220 MG CAP PO SCH (11:59)
[2021-02-02] MEDS: PANTOPRAZOLE SOD 40 MG TABEC PO SCH (11:59)
[2021-02-02] MEDS: DEXAMETHASONE SOD PHOS 10 MG/1 ML VIAL IV SCH (11:59)
[2021-02-02] MEDS ORDERED: LACTATED RINGER'S 500 ML INJ ONE (13:00)
[2021-02-02] MEDS ORDERED: ENOXAPARIN SOD INJ 40 MG/0.4 ML SYR SC SCH (17:00)
[2021-02-02] MEDS: BENZONATATE 100 MG CAP PO PRN (18:22)
[2021-02-02] MEDS: QUETIAPINE FUMARATE 25 MG TAB PO SCH (20:51)
[2021-02-03] VITALS (23 sets, daily range): BP systolic 93–155; BP diastolic 56–115
[2021-02-03] MEDS: HYDROCODONE/APAP 10MG-325MG TAB PO PRN ×3 (04:27→18:48)
[2021-02-03 04:59] LABS: EOSINOPHILS % 0.1 % (0.0-6.0); HEMATOCRIT 41.8 % (38.2-49.6); HEMOGLOBIN 14.1 g/dL (14.0-18.0); LYMPHOCYTES # (AUTO) 0.4 (1.0-3.2); LYMPHOCYTES % 5.3 % (18.0-39.1); MEAN CORPUSCULAR HEMOGLOBIN 34.7 pg (28-32); MEAN CORPUSCULAR HGB CONC 33.7 g/dL (31-35); MONOCYTES # (AUTO) 0.6 (0.2-0.8); MONOCYTES % 7.9 % (4.4-11.3); NEUTROPHILS # (AUTO) 6.9 (2.1-6.9); NEUTROPHILS % 86.3 % (38.7-80.0); RED BLOOD COUNT 4.06 x10e6/uL (4.3-5.7); RED CELL DISTRIBUTION WIDTH 12.4 % (11.7-14.4)
[2021-02-03 05:03] LABS: PLATELET COUNT 39 x10e3/uL (140-360)
[2021-02-03] MEDS: PANTOPRAZOLE SOD 40 MG TABEC PO SCH (08:02)
[2021-02-03] MEDS: DEXAMETHASONE SOD PHOS 10 MG/1 ML VIAL IV SCH (08:02)
[2021-02-03] MEDS: FENOFIBRATE 145 MG TAB PO SCH (08:02)
[2021-02-03] MEDS: ASCORBIC ACID 500 MG TAB PO SCH ×2 (08:02→17:19)
[2021-02-03] MEDS: ZINC SULFATE 220 MG CAP PO SCH (08:02)
[2021-02-03] MEDS: BARICITINIB 2 MG TABLET PO SCH (08:02)
[2021-02-03] MEDS ORDERED: SODIUM CHLORIDE 0.9% 50ML 50 ML ONE (12:54)
[2021-02-03] MEDS ORDERED: IOPAMIDOL 370 MG/ML 200 ML INFUS..BTL INJ ONE (12:55)
[2021-02-03] MEDS: QUETIAPINE FUMARATE 25 MG TAB PO SCH (21:40)
[2021-02-04] VITALS (24 sets, daily range): BP systolic 95–140; BP diastolic 49–116
[2021-02-04] MEDS: HYDROCODONE/APAP 10MG-325MG TAB PO PRN ×3 (03:38→22:04)
[2021-02-04 05:26] LABS: EOSINOPHILS # (AUTO) 0.1 (0.0-0.4); EOSINOPHILS % 0.4 % (0.0-6.0); HEMATOCRIT 40.1 % (38.2-49.6); HEMOGLOBIN 13.9 g/dL (14.0-18.0); LYMPHOCYTES # (AUTO) 0.5 (1.0-3.2); LYMPHOCYTES % 4.4 % (18.0-39.1); MEAN CORPUSCULAR HEMOGLOBIN 35.3 pg (28-32); MEAN CORPUSCULAR HGB CONC 34.7 g/dL (31-35); MEAN CORPUSCULAR VOLUME 101.8 fL (81-99); MONOCYTES # (AUTO) 1.1 (0.2-0.8); NEUTROPHILS # (AUTO) 10.2 (2.1-6.9); NEUTROPHILS % 85.4 % (38.7-80.0); RED BLOOD COUNT 3.94 x10e6/uL (4.3-5.7); RED CELL DISTRIBUTION WIDTH 12.2 % (11.7-14.4)
[2021-02-04 05:33] LABS: PLATELET COUNT 41 x10e3/uL (140-360)
[2021-02-04 06:12] LABS: ALBUMIN 2.1 g/dL (3.5-5.0); ALBUMIN/GLOBULIN RATIO 0.5 (0.8-2.0); ANION GAP 10.4 mmol/L (8-16); CALCIUM 8.1 mg/dL (8.4-10.2); CREATININE, SERUM 0.75 mg/dL (0.72-1.25); POTASSIUM 4.4 mmol/L (3.5-5.1)
[2021-02-04] MEDS: PANTOPRAZOLE SOD 40 MG TABEC PO SCH (07:58)
[2021-02-04] MEDS: DEXAMETHASONE SOD PHOS 10 MG/1 ML VIAL IV SCH (07:58)
[2021-02-04] MEDS: ASCORBIC ACID 500 MG TAB PO SCH ×2 (07:59→16:57)
[2021-02-04] MEDS: BARICITINIB 2 MG TABLET PO SCH (07:59)
[2021-02-04] MEDS: ZINC SULFATE 220 MG CAP PO SCH (07:59)
[2021-02-04] MEDS: FENOFIBRATE 145 MG TAB PO SCH (07:59)
[2021-02-04] MEDS: BENZONATATE 100 MG CAP PO PRN (14:45)
[2021-02-04] MEDS: QUETIAPINE FUMARATE 25 MG TAB PO SCH (20:37)
[2021-02-05] VITALS (24 sets, daily range): BP systolic 99–146; BP diastolic 57–118
[2021-02-05 06:11] LABS: BASOPHILS % 0.1 % (0.0-1.0); EOSINOPHILS % 0.3 % (0.0-6.0); HEMATOCRIT 36.2 % (38.2-49.6); LYMPHOCYTES # (AUTO) 0.6 (1.0-3.2); LYMPHOCYTES % 5.4 % (18.0-39.1); MEAN CORPUSCULAR HEMOGLOBIN 36.8 pg (28-32); MEAN CORPUSCULAR HGB CONC 35.9 g/dL (31-35); MEAN CORPUSCULAR VOLUME 102.5 fL (81-99); MONOCYTES % 9.5 % (4.4-11.3); NEUTROPHILS # (AUTO) 8.6 (2.1-6.9); RED BLOOD COUNT 3.53 x10e6/uL (4.3-5.7); RED CELL DISTRIBUTION WIDTH 12.6 % (11.7-14.4)
[2021-02-05 06:25] LABS: PLATELET COUNT 39 x10e3/uL (140-360)
[2021-02-05] MEDS: PANTOPRAZOLE SOD 40 MG TABEC PO SCH (08:05)
[2021-02-05] MEDS: FENOFIBRATE 145 MG TAB PO SCH (08:06)
[2021-02-05] MEDS: ASCORBIC ACID 500 MG TAB PO SCH ×2 (08:06→17:01)
[2021-02-05] MEDS: BARICITINIB 2 MG TABLET PO SCH (08:06)
[2021-02-05] MEDS: ZINC SULFATE 220 MG CAP PO SCH (08:06)
[2021-02-05] MEDS: DEXAMETHASONE SOD PHOS 10 MG/1 ML VIAL IV SCH (08:06)
[2021-02-05] MEDS: HYDROCODONE/APAP 10MG-325MG TAB PO PRN (08:06)
[2021-02-05] MEDS: HEPARIN SOD (PORCINE) 5,000 UNIT/ML VIAL SC SCH ×2 (09:00→21:26)
[2021-02-05] MEDS: ACETAMINOPHEN 325 MG TAB PO PRN (19:08)
[2021-02-05] MEDS: QUETIAPINE FUMARATE 25 MG TAB PO SCH (21:21)
[2021-02-05] MEDS: BENZONATATE 100 MG CAP PO PRN (21:22)
[2021-02-06] VITALS (24 sets, daily range): BP systolic 89–125; BP diastolic 46–86
[2021-02-06] MEDS: ACETAMINOPHEN 325 MG TAB PO PRN (00:11)
[2021-02-06 05:55] LABS: BASOPHILS % 0.1 % (0.0-1.0); EOSINOPHILS % 0.3 % (0.0-6.0); HEMATOCRIT 37.9 % (38.2-49.6); HEMOGLOBIN 13.3 g/dL (14.0-18.0); LYMPHOCYTES # (AUTO) 0.5 (1.0-3.2); LYMPHOCYTES % 4.9 % (18.0-39.1); MEAN CORPUSCULAR HEMOGLOBIN 35.2 pg (28-32); MEAN CORPUSCULAR HGB CONC 35.1 g/dL (31-35); MEAN CORPUSCULAR VOLUME 100.3 fL (81-99); MONOCYTES # (AUTO) 0.9 (0.2-0.8); MONOCYTES % 8.8 % (4.4-11.3); NEUTROPHILS # (AUTO) 8.6 (2.1-6.9); NEUTROPHILS % 85.2 % (38.7-80.0); RED BLOOD COUNT 3.78 x10e6/uL (4.3-5.7); RED CELL DISTRIBUTION WIDTH 12.3 % (11.7-14.4)
[2021-02-06 06:00] LABS: PLATELET COUNT 40 x10e3/uL (140-360)
[2021-02-06] MEDS: ASCORBIC ACID 500 MG TAB PO SCH ×2 (08:19→19:25)
[2021-02-06] MEDS: ZINC SULFATE 220 MG CAP PO SCH (08:19)
[2021-02-06] MEDS: FENOFIBRATE 145 MG TAB PO SCH (08:19)
[2021-02-06] MEDS: BARICITINIB 2 MG TABLET PO SCH (08:20)
[2021-02-06] MEDS: PANTOPRAZOLE SOD 40 MG TABEC PO SCH (08:20)
[2021-02-06] MEDS: DEXAMETHASONE SOD PHOS 10 MG/1 ML VIAL IV SCH (08:28)
[2021-02-06] MEDS: HEPARIN SOD (PORCINE) 5,000 UNIT/ML VIAL SC SCH ×2 (08:55→20:40)
[2021-02-06] MEDS: HYDROCODONE/APAP 10MG-325MG TAB PO PRN ×2 (11:27→18:56)
[2021-02-06] MEDS: QUETIAPINE FUMARATE 25 MG TAB PO SCH (20:40)
[2021-02-07] VITALS (31 sets, daily range): BP systolic 67–128; BP diastolic 49–83
[2021-02-07] MEDS: HYDROCODONE/APAP 10MG-325MG TAB PO PRN ×2 (03:21→09:50)
[2021-02-07 06:40] LABS: BASOPHILS % 0.1 % (0.0-1.0); EOSINOPHILS # (AUTO) 0.2 (0.0-0.4); EOSINOPHILS % 2.1 % (0.0-6.0); HEMATOCRIT 38.5 % (38.2-49.6); LYMPHOCYTES # (AUTO) 0.8 (1.0-3.2); LYMPHOCYTES % 6.9 % (18.0-39.1); MEAN CORPUSCULAR HEMOGLOBIN 34.9 pg (28-32); MEAN CORPUSCULAR HGB CONC 33.8 g/dL (31-35); MEAN CORPUSCULAR VOLUME 103.2 fL (81-99); MONOCYTES # (AUTO) 0.8 (0.2-0.8); MONOCYTES % 7.5 % (4.4-11.3); NEUTROPHILS # (AUTO) 9.1 (2.1-6.9); NEUTROPHILS % 82.9 % (38.7-80.0); RED BLOOD COUNT 3.73 x10e6/uL (4.3-5.7); RED CELL DISTRIBUTION WIDTH 12.4 % (11.7-14.4)
[2021-02-07 06:53] LABS: PLATELET COUNT 44 x10e3/uL (140-360)
[2021-02-07] MEDS: PANTOPRAZOLE SOD 40 MG TABEC PO SCH (07:54)
[2021-02-07] MEDS: ASCORBIC ACID 500 MG TAB PO SCH ×2 (09:05→17:28)
[2021-02-07] MEDS: BARICITINIB 2 MG TABLET PO SCH (09:05)
[2021-02-07] MEDS: FENOFIBRATE 145 MG TAB PO SCH (09:05)
[2021-02-07] MEDS: DEXAMETHASONE SOD PHOS 10 MG/1 ML VIAL IV SCH (09:05)
[2021-02-07] MEDS: ZINC SULFATE 220 MG CAP PO SCH (09:05)
[2021-02-07] MEDS: HEPARIN SOD (PORCINE) 5,000 UNIT/ML VIAL SC SCH (09:06)
[2021-02-07] MEDS ORDERED: DEXMEDETOMIDINE 400MCG/NS100ML 100 ML IV PRN (09:45)
[2021-02-07 10:28] LABS: BAND NEUTROPHILS % (MANUAL) 1 %; LYMPHOCYTES % (MANUAL) 4 % (19-48); MONOCYTES % (MANUAL) 6 % (3.4-9.0); NEUTROPHILS % (MANUAL) 89 % (40-74)
[2021-02-07 10:29] LABS: PLATELET ESTIMATE MODERATELY DECREASED; PLATELET MORPHOLOGY COMMENT NORMAL
[2021-02-07] MEDS ORDERED: HEPARIN 25,000 UNIT 1,200 UNIT in DEXTROSE 5% 250ML 250 ML IV SCH (10:30)
[2021-02-07] MEDS ORDERED: SODIUM CHLORIDE 0.9% 1000ML 500 ML IV ONE (10:30)
[2021-02-07 11:21] LABS: ABG HCO3 27 mmol/L (22-26); ABG PCO2 37 mmHg (35-45); ABG PH 7.46 (7.35-7.45); ABG PO2 58 mmHg (80-105); ABG TCO2 28
[2021-02-07] MEDS ORDERED: SODIUM CHLORIDE 0.9% 1000ML 1,000 ML ONE (11:22)
[2021-02-07 13:02] LABS: ANION GAP 9.3 mmol/L (8-16); CALCIUM 7.1 mg/dL (8.4-10.2); CREATININE, SERUM 0.72 mg/dL (0.72-1.25); MAGNESIUM 1.6 MG/DL (1.3-2.1); PHOSPHORUS 2.4 MG/DL (2.3-4.7); POTASSIUM 4.3 mmol/L (3.5-5.1)
[2021-02-07] MEDS: ALBUMIN 25% 25GM 100ML 0.25 GM/ML BTL IV SCH ×2 (13:08→20:58)
[2021-02-07 14:10] LABS: INR 1.05; PROTHROMBIN TIME 13.9 seconds (11.9-14.5)
[2021-02-07] MEDS: QUETIAPINE FUMARATE 25 MG TAB PO SCH (20:58)
[2021-02-08] VITALS (25 sets, daily range): BP systolic 82–166; BP diastolic 44–68
[2021-02-08] MEDS ORDERED: SODIUM CHLORIDE 0.9% 1000ML 0 ML ONE (03:00)
[2021-02-08] MEDS ORDERED: NOREPINEPHRINE 8 MG/D5W 250 ML 250 ML ONE (03:01)
[2021-02-08] MEDS ORDERED: SODIUM CHLORIDE 0.9% 1000ML 1,000 ML IV ONE (03:30)
[2021-02-08] MEDS ORDERED: SODIUM CHLORIDE 0.9% 1000ML 1,000 ML ONE (03:32)
[2021-02-08] MEDS ORDERED: ROCURONIUM BROMIDE IV PRN (03:45)
[2021-02-08] MEDS ORDERED: SODIUM CHLORIDE 0.9% IV PRN (03:45)
[2021-02-08] MEDS ORDERED: FENTANYL 2000MCG/NS 250 250 ML ONE (03:46)
[2021-02-08] MEDS ORDERED: MIDAZOLAM HCL 5MG/ML 10ML VIAL 100 ML IV ONE (03:47)
[2021-02-08] MEDS ORDERED: ROCURONIUM 1250MG/NS 250 250 ML ONE ×2 (03:48→18:50)
[2021-02-08] MEDS ORDERED: AMIODARONE HCL 150 MG/100 ML BAG IV ONE (04:15)
[2021-02-08] MEDS ORDERED: AMIODARONE 900MG 500 ML IV ONE (04:18)
[2021-02-08] MEDS ORDERED: AMIODARONE HCL 100 ML IV ONE (04:18)
[2021-02-08] MEDS: AMIODARONE 900MG 500 ML IV PRN (04:30)
[2021-02-08 05:43] LABS: ABG PH 7.34 (7.35-7.45)
[2021-02-08 05:44] LABS: ABG HCO3 24 mmol/L (22-26); ABG PCO2 45 mmHg (35-45); ABG PO2 39 mmHg (80-105); ABG TCO2 26
[2021-02-08 05:58] LABS: BASOPHILS % 0.1 % (0.0-1.0); EOSINOPHILS # (AUTO) 0.2 (0.0-0.4); EOSINOPHILS % 2.2 % (0.0-6.0); HEMATOCRIT 31.7 % (38.2-49.6); HEMOGLOBIN 10.3 g/dL (14.0-18.0); LYMPHOCYTES # (AUTO) 0.4 (1.0-3.2); LYMPHOCYTES % 3.9 % (18.0-39.1); MEAN CORPUSCULAR HEMOGLOBIN 34.9 pg (28-32); MEAN CORPUSCULAR HGB CONC 32.5 g/dL (31-35); MEAN CORPUSCULAR VOLUME 107.5 fL (81-99); MONOCYTES # (AUTO) 0.5 (0.2-0.8); MONOCYTES % 4.5 % (4.4-11.3); NEUTROPHILS # (AUTO) 9.8 (2.1-6.9); NEUTROPHILS % 88.6 % (38.7-80.0); RED BLOOD COUNT 2.95 x10e6/uL (4.3-5.7); RED CELL DISTRIBUTION WIDTH 12.8 % (11.7-14.4)
[2021-02-08] MEDS ORDERED: ALBUMIN 25% 25GM 100ML 100 ML ONE (06:07)
[2021-02-08] MEDS: ALBUMIN 25% 25GM 100ML 0.25 GM/ML BTL IV SCH (06:14)
[2021-02-08 06:46] LABS: PLATELET COUNT 40 x10e3/uL (140-360)
[2021-02-08] MEDS: PANTOPRAZOLE SOD 40 MG TABEC PO SCH (07:30)
[2021-02-08 08:11] LABS: ANION GAP 12.4 mmol/L (8-16); CREATININE, SERUM 0.74 mg/dL (0.72-1.25); POTASSIUM 3.4 mmol/L (3.5-5.1)
[2021-02-08] MEDS: ASCORBIC ACID 500 MG TAB PO SCH ×2 (08:14→18:41)
[2021-02-08] MEDS: ZINC SULFATE 220 MG CAP PO SCH (08:14)
[2021-02-08] MEDS: FENOFIBRATE 145 MG TAB PO SCH (08:14)
[2021-02-08] MEDS: DEXAMETHASONE SOD PHOS 10 MG/1 ML VIAL IV SCH (08:16)
[2021-02-08 08:18] LABS: CALCIUM 6.9 mg/dL (8.4-10.2)
[2021-02-08] MEDS ORDERED: MAGNESIUM SULFATE 2GM/50ML 50 ML IV ONE (09:30)
[2021-02-08] MEDS ORDERED: POTASSIUM CHLORIDE 20MEQ/100ML 200 ML IV ONE (09:30)
[2021-02-08] MEDS: MIDAZOLAM HCL 5MG/ML 10ML VIAL 100 ML IV PRN ×2 (11:29→18:42)
[2021-02-08] MEDS: ROCURONIUM BROMIDE 1,250 MG in SODIUM CHLORIDE 0.9% 250ML 125 ML IV PRN ×2 (11:31→18:43)
[2021-02-08 12:40] LABS: INR 1.33; PROTHROMBIN TIME 16.7 seconds (11.9-14.5)
[2021-02-08 12:41] LABS: PARTIAL THROMBOPLASTIN TIME 59.8 seconds (23.8-35.5)
[2021-02-08 12:50] LABS: FERRITIN 1497.92 ng/mL (21.81-274.66)
[2021-02-08] MEDS: FENTANYL 2000MCG/NS 250 250 ML IV PRN (13:37)
[2021-02-08 15:17] LABS: HEMATOCRIT 32.3 % (38.2-49.6); HEMOGLOBIN 10.4 g/dL (14.0-18.0)
[2021-02-08] MEDS ORDERED: SODIUM CHLORIDE 0.9% 500ML 500 ML ONE (15:40)
[2021-02-08] MEDS: HEPARIN SOD (PORCINE) 5,000 UNIT/ML VIAL SC SCH (20:54)
[2021-02-09] VITALS (25 sets, daily range): BP systolic 85–163; BP diastolic 49–80
[2021-02-09] MEDS: FENTANYL 2000MCG/NS 250 250 ML IV PRN ×3 (00:23→20:56)
[2021-02-09] MEDS: ROCURONIUM BROMIDE 1,250 MG in SODIUM CHLORIDE 0.9% 250ML 125 ML IV PRN ×2 (01:57→15:28)
[2021-02-09] MEDS: AMIODARONE 900MG 500 ML IV PRN (01:58)
[2021-02-09] MEDS: MIDAZOLAM HCL 5MG/ML 10ML VIAL 100 ML IV PRN ×2 (01:58→09:19)
[2021-02-09 06:07] LABS: BASOPHILS % 0.2 % (0.0-1.0); EOSINOPHILS % 0.3 % (0.0-6.0); HEMATOCRIT 32.1 % (38.2-49.6); HEMOGLOBIN 10.4 g/dL (14.0-18.0); LYMPHOCYTES # (AUTO) 0.5 (1.0-3.2); LYMPHOCYTES % 4.2 % (18.0-39.1); MEAN CORPUSCULAR HEMOGLOBIN 34.7 pg (28-32); MEAN CORPUSCULAR HGB CONC 32.4 g/dL (31-35); MONOCYTES # (AUTO) 0.5 (0.2-0.8); MONOCYTES % 4.3 % (4.4-11.3); NEUTROPHILS # (AUTO) 10.8 (2.1-6.9); NEUTROPHILS % 90.3 % (38.7-80.0); PLATELET COUNT 58 x10e3/uL (140-360); RED CELL DISTRIBUTION WIDTH 12.9 % (11.7-14.4)
[2021-02-09 06:28] LABS: ALBUMIN 2.6 g/dL (3.5-5.0); ALBUMIN/GLOBULIN RATIO 0.7 (0.8-2.0); ANION GAP 12.6 mmol/L (8-16); CALCIUM 8.5 mg/dL (8.4-10.2); CHOL/HDL RATIO 4.8 (3.9-4.7); MAGNESIUM 2.1 MG/DL (1.3-2.1); POTASSIUM 4.6 mmol/L (3.5-5.1)
[2021-02-09 06:52] LABS: THYROID STIMULATING HORMONE 0.352 uIU/mL (0.350-4.940)
[2021-02-09 08:16] LABS: ABG HCO3 23 mmol/L (22-26); ABG PCO2 39 mmHg (35-45); ABG PH 7.38 (7.35-7.45); ABG PO2 78 mmHg (80-105); ABG TCO2 24
[2021-02-09] MEDS: ASCORBIC ACID 500 MG TAB PO SCH ×2 (09:00→17:00)
[2021-02-09] MEDS: ZINC SULFATE 220 MG CAP PO SCH (09:00)
[2021-02-09] MEDS: FENOFIBRATE 145 MG TAB PO SCH (09:00)
[2021-02-09] MEDS: DEXAMETHASONE SOD PHOS 10 MG/1 ML VIAL IV SCH (09:16)
[2021-02-09] MEDS: HEPARIN SOD (PORCINE) 5,000 UNIT/ML VIAL SC SCH ×2 (09:17→21:00)
[2021-02-09] MEDS ORDERED: SODIUM CHLORIDE 0.9% 1000ML 0 ML ONE (13:32)
[2021-02-09] MEDS ORDERED: ATROPINE SULFATE 0.1 MG/ML 10ML SYR ONE (13:32)
[2021-02-09] MEDS ORDERED: EPINEPHRINE HCL SYRINGE ONE (13:32)
[2021-02-09] MEDS ORDERED: ROCURONIUM 1250MG/NS 250 250 ML ONE (15:35)
[2021-02-10] VITALS (25 sets, daily range): BP systolic 96–147; BP diastolic 58–82
[2021-02-10] MEDS: FENTANYL 2000MCG/NS 250 250 ML IV PRN ×2 (06:40→17:30)
[2021-02-10 06:45] LABS: ALBUMIN 2.3 g/dL (3.5-5.0); ALBUMIN/GLOBULIN RATIO 0.6 (0.8-2.0); ANION GAP 13.7 mmol/L (8-16); CALCIUM 7.9 mg/dL (8.4-10.2); CREATININE, SERUM 0.87 mg/dL (0.72-1.25); POTASSIUM 4.7 mmol/L (3.5-5.1)
[2021-02-10 07:08] LABS: BASOPHILS % 0.1 % (0.0-1.0); EOSINOPHILS % 0.1 % (0.0-6.0); HEMATOCRIT 34.5 % (38.2-49.6); HEMOGLOBIN 11.2 g/dL (14.0-18.0); LYMPHOCYTES # (AUTO) 0.6 (1.0-3.2); LYMPHOCYTES % 3.5 % (18.0-39.1); MEAN CORPUSCULAR HEMOGLOBIN 34.9 pg (28-32); MEAN CORPUSCULAR HGB CONC 32.5 g/dL (31-35); MEAN CORPUSCULAR VOLUME 107.5 fL (81-99); MONOCYTES # (AUTO) 0.8 (0.2-0.8); NEUTROPHILS # (AUTO) 14.9 (2.1-6.9); NEUTROPHILS % 90.1 % (38.7-80.0); PLATELET COUNT 102 x10e3/uL (140-360); RED BLOOD COUNT 3.21 x10e6/uL (4.3-5.7); RED CELL DISTRIBUTION WIDTH 12.8 % (11.7-14.4)
[2021-02-10] MEDS: MIDAZOLAM HCL 5MG/ML 10ML VIAL 100 ML IV PRN ×2 (08:00→17:30)
[2021-02-10] MEDS: ZINC SULFATE 220 MG CAP PO SCH (08:29)
[2021-02-10] MEDS: ASCORBIC ACID 500 MG TAB PO SCH ×2 (08:29→17:29)
[2021-02-10] MEDS: FOLIC ACID 1 MG TAB PO SCH (08:29)
[2021-02-10] MEDS: FENOFIBRATE 145 MG TAB PO SCH (08:29)
[2021-02-10 09:09] LABS: ABG HCO3 25 mmol/L (22-26); ABG PCO2 50 mmHg (35-45); ABG PH 7.31 (7.35-7.45); ABG PO2 76 mmHg (80-105); ABG TCO2 26
[2021-02-10] MEDS: ROCURONIUM BROMIDE 1,250 MG in SODIUM CHLORIDE 0.9% 250ML 125 ML IV PRN ×2 (13:42→20:48)
[2021-02-10] MEDS ORDERED: ROCURONIUM 1250MG/NS 250 250 ML ONE ×2 (13:50→20:57)
[2021-02-10] MEDS: ENOXAPARIN SOD INJ 40 MG/0.4 ML SYR SC SCH (17:29)
[2021-02-10] MEDS: PIPERACILLIN/TAZOBACTAM 3.375 GM in SODIUM CHLORIDE 0.9% 50ML 50 ML IV SCH ×2 (17:29→23:11)
[2021-02-11] VITALS (28 sets, daily range): BP systolic 82–127; BP diastolic 48–67
[2021-02-11] MEDS ORDERED: ROCURONIUM 1250MG/NS 250 250 ML ONE ×3 (02:15→16:57)
[2021-02-11] MEDS: FENTANYL 2000MCG/NS 250 250 ML IV PRN ×2 (02:53→12:29)
[2021-02-11] MEDS: MIDAZOLAM HCL 5MG/ML 10ML VIAL 100 ML IV PRN ×3 (02:54→18:25)
[2021-02-11] MEDS: ROCURONIUM BROMIDE 1,250 MG in SODIUM CHLORIDE 0.9% 250ML 125 ML IV PRN ×3 (02:54→16:59)
[2021-02-11] MEDS: PIPERACILLIN/TAZOBACTAM 3.375 GM in SODIUM CHLORIDE 0.9% 50ML 50 ML IV SCH ×3 (05:44→16:59)
[2021-02-11 05:47] LABS: BASOPHILS % 0.3 % (0.0-1.0); EOSINOPHILS # (AUTO) 0.1 (0.0-0.4); EOSINOPHILS % 0.7 % (0.0-6.0); HEMATOCRIT 35.1 % (38.2-49.6); HEMOGLOBIN 11.4 g/dL (14.0-18.0); LYMPHOCYTES # (AUTO) 0.8 (1.0-3.2); LYMPHOCYTES % 6.8 % (18.0-39.1); MEAN CORPUSCULAR HEMOGLOBIN 34.8 pg (28-32); MEAN CORPUSCULAR HGB CONC 32.5 g/dL (31-35); MONOCYTES # (AUTO) 0.8 (0.2-0.8); MONOCYTES % 7.5 % (4.4-11.3); NEUTROPHILS # (AUTO) 9.4 (2.1-6.9); NEUTROPHILS % 83.5 % (38.7-80.0); PLATELET COUNT 77 x10e3/uL (140-360); RED BLOOD COUNT 3.28 x10e6/uL (4.3-5.7)
[2021-02-11 06:20] LABS: ALBUMIN 2.1 g/dL (3.5-5.0); ALBUMIN/GLOBULIN RATIO 0.5 (0.8-2.0); ANION GAP 11.9 mmol/L (8-16); CALCIUM 8.3 mg/dL (8.4-10.2); CREATININE, SERUM 0.83 mg/dL (0.72-1.25); POTASSIUM 4.9 mmol/L (3.5-5.1)
[2021-02-11 08:26] LABS: ABG PCO2 47 mmHg (35-45); ABG PH 7.37 (7.35-7.45); ABG PO2 66 mmHg (80-105); ABG TCO2 29
[2021-02-11 08:27] LABS: ABG HCO3 28 mmol/L (22-26)
[2021-02-11] MEDS: FENOFIBRATE 145 MG TAB PO SCH (08:31)
[2021-02-11] MEDS: ZINC SULFATE 220 MG CAP PO SCH (08:31)
[2021-02-11] MEDS: FOLIC ACID 1 MG TAB PO SCH (08:31)
[2021-02-11] MEDS: ASCORBIC ACID 500 MG TAB PO SCH ×2 (08:31→16:59)
[2021-02-11] MEDS: ACETAMINOPHEN 325 MG TAB PO PRN ×2 (14:25→22:08)
[2021-02-11] MEDS ORDERED: SODIUM CHLORIDE 0.9% 1000ML 1,000 ML ONE (15:02)
[2021-02-11] MEDS: ENOXAPARIN SOD INJ 40 MG/0.4 ML SYR SC SCH (16:59)
[2021-02-11] MEDS: NOREPINEPHRINE 8 MG/D5W 250 ML 250 ML IV PRN (20:33)
[2021-02-12] VITALS (22 sets, daily range): BP systolic 74–159; BP diastolic 45–74
[2021-02-12] MEDS: PIPERACILLIN/TAZOBACTAM 3.375 GM in SODIUM CHLORIDE 0.9% 50ML 50 ML IV SCH ×2 (00:07→04:19)
[2021-02-12] MEDS: ROCURONIUM BROMIDE 1,250 MG in SODIUM CHLORIDE 0.9% 250ML 125 ML IV PRN (00:40)
[2021-02-12] MEDS ORDERED: ROCURONIUM 1250MG/NS 250 250 ML ONE (00:41)
[2021-02-12] MEDS: NOREPINEPHRINE 8 MG/D5W 250 ML 250 ML IV PRN ×7 (02:55→21:31)
[2021-02-12] MEDS: MIDAZOLAM HCL 5MG/ML 10ML VIAL 100 ML IV PRN ×2 (03:32→20:13)
[2021-02-12 06:28] LABS: BASOPHILS # (AUTO) 0.1 (0.0-0.1); BASOPHILS % 0.3 % (0.0-1.0); EOSINOPHILS # (AUTO) 0.7 (0.0-0.4); EOSINOPHILS % 3.3 % (0.0-6.0); HEMATOCRIT 40.6 % (38.2-49.6); LYMPHOCYTES # (AUTO) 1.6 (1.0-3.2); LYMPHOCYTES % 7.9 % (18.0-39.1); MEAN CORPUSCULAR HEMOGLOBIN 35.4 pg (28-32); MEAN CORPUSCULAR VOLUME 110.6 fL (81-99); MONOCYTES # (AUTO) 1.3 (0.2-0.8); MONOCYTES % 6.3 % (4.4-11.3); NEUTROPHILS # (AUTO) 15.9 (2.1-6.9); NEUTROPHILS % 80.4 % (38.7-80.0); PLATELET COUNT 115 x10e3/uL (140-360); RED BLOOD COUNT 3.67 x10e6/uL (4.3-5.7); RED CELL DISTRIBUTION WIDTH 13.7 % (11.7-14.4)
[2021-02-12] MEDS ORDERED: HEPARIN 25,000 UNIT DRIP IV ONE (06:51)
[2021-02-12 06:52] LABS: ALBUMIN/GLOBULIN RATIO 0.4 (0.8-2.0); ANION GAP 12.1 mmol/L (8-16); CALCIUM 8.4 mg/dL (8.4-10.2); CREATININE, SERUM 0.87 mg/dL (0.72-1.25); POTASSIUM 5.1 mmol/L (3.5-5.1)
[2021-02-12] MEDS ORDERED: Vancomycin IV 1 GM in SODIUM CHLORIDE 0.9% 250ML 250 ML IV SCH (08:30)
[2021-02-12] MEDS ORDERED: VASOPRESSIN 60 UNIT in DEXTROSE 5% 50ML 57 ML IV PRN (08:30)
[2021-02-12] MEDS: ZINC SULFATE 220 MG CAP PO SCH (08:40)
[2021-02-12] MEDS: FOLIC ACID 1 MG TAB PO SCH (08:40)
[2021-02-12] MEDS: ASCORBIC ACID 500 MG TAB PO SCH ×2 (08:40→17:46)
[2021-02-12] MEDS: ACETAMINOPHEN 325 MG TAB PO PRN ×2 (08:41→09:30)
[2021-02-12] MEDS ORDERED: SODIUM CHLORIDE 0.9% IV SCH (08:45)
[2021-02-12] MEDS ORDERED: MICAFUNGIN SODIUM IV SCH (08:45)
[2021-02-12 08:48] LABS: ABG HCO3 30 mmol/L (22-26); ABG PCO2 59 mmHg (35-45); ABG PH 7.32 (7.35-7.45); ABG PO2 45 mmHg (80-105); ABG TCO2 32
[2021-02-12] MEDS: VASOPRESSIN 60 UNIT in DEXTROSE 5% 50ML 57 ML IV PRN ×3 (09:15→20:26)
[2021-02-12] MEDS ORDERED: ALBUMIN 25% 12.5GM 0.25 GM/ML BTL IV ONE (09:30)
[2021-02-12] MEDS: FENTANYL 2000MCG/NS 250 250 ML IV PRN ×2 (10:09→19:38)
[2021-02-12] MEDS: PHENYLEPHRINE 10MG/ML VIAL 40 MG in DEXTROSE 5% 250ML 246 ML IV PRN (10:12)
[2021-02-12] MEDS: FENOFIBRATE 145 MG TAB PO SCH (10:29)
[2021-02-12] MEDS: Vancomycin IV 1 GM in SODIUM CHLORIDE 0.9% 250ML 250 ML IV SCH ×2 (10:35→21:29)
[2021-02-12] MEDS ORDERED: SODIUM CHLORIDE 0.9% 250ML 500 ML ONE (10:50)
[2021-02-12] MEDS ORDERED: Vancomycin IV 1 GM VIAL ONE (10:50)
[2021-02-12 11:34] LABS: CLARITY,URINE SL CLOUDY (CLEAR); COLOR,URINE YELLOW (YELLOW); KETONES,URINE NEGATIVE (NEGATIVE); LEUKOCYTE ESTERASE ,URINE NEGATIVE (NEGATIVE); NITRITE,URINE NEGATIVE (NEGATIVE); PROTEIN,URINE DIPSTICK 1+ (NEGATIVE); URINE UROBILINOGEN >=8 mg/dL (0.2 - 1)
[2021-02-12 11:54] LABS: BACTERIA,URINE MODERATE /HPF; EPITHELIAL CELLS,URINE FEW /LPF; WBC,URINE (MAN) 0-5 /HPF (0-5)
[2021-02-12 11:55] LABS: YEAST,URINE MANY
[2021-02-12] MEDS ORDERED: SODIUM CHLORIDE 0.9% 1000ML 1,000 ML ONE (11:58)
[2021-02-12] MEDS: MEROPENEM 1 GM in SODIUM CHLORIDE 0.9% 100 ML IV SCH ×2 (15:51→22:06)
[2021-02-12] MEDS: ENOXAPARIN SOD INJ 40 MG/0.4 ML SYR SC SCH (17:46)
[2021-02-13] VITALS (10 sets, daily range): BP systolic 0–106; BP diastolic 0–93
[2021-02-13] MEDS ORDERED: SODIUM BICARBONATE 8.4% INJ 50 ML SYR IV STA (00:22)
[2021-02-13] MEDS ORDERED: SODIUM BICARBONATE 8.4% SYRING 50 ML ONE (00:36)
[2021-02-13] MEDS: ACETAMINOPHEN 325 MG TAB PO PRN (00:39)
[2021-02-13] MEDS ORDERED: ROCURONIUM 1250MG/NS 250 250 ML ONE (01:41)
[2021-02-13] MEDS: NOREPINEPHRINE 8 MG/D5W 250 ML 250 ML IV PRN ×2 (01:50→05:33)
[2021-02-13] MEDS: PHENYLEPHRINE 10MG/ML VIAL 40 MG in DEXTROSE 5% 250ML 246 ML IV PRN (02:30)
[2021-02-13] MEDS: ROCURONIUM BROMIDE 1,250 MG in SODIUM CHLORIDE 0.9% 250ML 125 ML IV PRN (02:51)
[2021-02-13] MEDS ORDERED: PHENYLEPHRINE HCL IN 0.9% NACL 250 ML IV ONE (06:13)
[2021-02-13] MEDS: MEROPENEM 1 GM in SODIUM CHLORIDE 0.9% 100 ML IV SCH (06:26)
[2021-02-13 06:32] LABS: BASOPHILS # (AUTO) 0.1 (0.0-0.1); BASOPHILS % 0.4 % (0.0-1.0); EOSINOPHILS # (AUTO) 0.4 (0.0-0.4); EOSINOPHILS % 1.6 % (0.0-6.0); HEMATOCRIT 42.6 % (38.2-49.6); HEMOGLOBIN 12.9 g/dL (14.0-18.0); LYMPHOCYTES # (AUTO) 2.8 (1.0-3.2); LYMPHOCYTES % 11.3 % (18.0-39.1); MEAN CORPUSCULAR HEMOGLOBIN 35.2 pg (28-32); MEAN CORPUSCULAR HGB CONC 30.3 g/dL (31-35); MEAN CORPUSCULAR VOLUME 116.4 fL (81-99); MONOCYTES # (AUTO) 1.1 (0.2-0.8); MONOCYTES % 4.3 % (4.4-11.3); NEUTROPHILS # (AUTO) 19.3 (2.1-6.9); NEUTROPHILS % 79.6 % (38.7-80.0); PLATELET COUNT 162 x10e3/uL (140-360); RED BLOOD COUNT 3.66 x10e6/uL (4.3-5.7); RED CELL DISTRIBUTION WIDTH 14.2 % (11.7-14.4)
[2021-02-13 07:04] LABS: ALBUMIN 1.9 g/dL (3.5-5.0); ALBUMIN/GLOBULIN RATIO 0.4 (0.8-2.0); ANION GAP 19.8 mmol/L (8-16); CALCIUM 8.1 mg/dL (8.4-10.2); CREATININE, SERUM 1.05 mg/dL (0.72-1.25); POTASSIUM 5.8 mmol/L (3.5-5.1)
[2021-02-13] MEDS ORDERED: NOREPINEPHRINE 8 MG/D5W 250 ML 250 ML IV SCH (10:15)
== END 2021-02-13 12:19 | disposition expired | DRG 207 ==
LOC: ER 04:19 → ERHOLD 04:20 → IMCU 01-21 01:15 → ICU 01-22 17:31 → COVIDICU 02-11 23:11 → IMCU 02-13 10:35
PROVIDERS: ADMIT Internal Medicine; ATTEND Internal Medicine
PROC: 3E0333Z Introduction of Anti-inflammatory into Peripheral Vein, Percutaneous Approach (ICD-10-PCS; 2021-01-20)
PROC: 02HV33Z Insertion of Infusion Device into Superior Vena Cava, Percutaneous Approach (ICD-10-PCS; 2021-01-22)
PROC: B548ZZA Ultrasonography of Superior Vena Cava, Guidance (ICD-10-PCS; 2021-01-22)
PROC: 5A1955Z Respiratory Ventilation, Greater than 96 Consecutive Hours (ICD-10-PCS; principal; 2021-02-08)
PROC: 0BH17EZ Insertion of Endotracheal Airway into Trachea, Via Natural or Artificial Opening (ICD-10-PCS; 2021-02-08)
PROC: 3E043XZ Introduction of Vasopressor into Central Vein, Percutaneous Approach (ICD-10-PCS; 2021-02-08)
PROC: XW043E5 Introduction of Remdesivir Anti-infective into Central Vein, Percutaneous Approach, New Technology Group 5 (ICD-10-PCS; 2021-02-09)
PROC: 03HB33Z Insertion of Infusion Device into Right Radial Artery, Percutaneous Approach (ICD-10-PCS; 2021-02-11)
PROC: 0W9B30Z Drainage of Left Pleural Cavity with Drainage Device, Percutaneous Approach (ICD-10-PCS; 2021-02-13)
DX: U07.1 COVID-19 (principal); J12.82 Pneumonia due to coronavirus disease 2019; J96.21 Acute and chronic respiratory failure with hypoxia; I21.A1 Myocardial infarction type 2; A41.9 Sepsis, unspecified organism; R65.21 Severe sepsis with septic shock; G92.9 Unspecified toxic encephalopathy; J15.9 Unspecified bacterial pneumonia; D84.821 Immunodeficiency due to drugs; K76.6 Portal hypertension; I30.0 Acute nonspecific idiopathic pericarditis; I10 Essential (primary) hypertension; E78.5 Hyperlipidemia, unspecified; L40.9 Psoriasis, unspecified; M81.0 Age-related osteoporosis without current pathological fracture; Z87.891 Personal history of nicotine dependence; Z79.899 Other long term (current) drug therapy; D69.6 Thrombocytopenia, unspecified; L40.50 Arthropathic psoriasis, unspecified; M06.9 Rheumatoid arthritis, unspecified; K74.60 Unspecified cirrhosis of liver; J43.8 Other emphysema; I48.0 Paroxysmal atrial fibrillation
CPT/HCPCS: 31500; 36415; 36569; 36600; 71045; 71250; 71260; 74018; 76700; 80048; 80053; 80061; 81001; 82607; 82728; 82746; 82805; 82948; 83540; 83615; 83735; 84100; 84443; 84466; 84484; 85014; 85018; 85025; 85045; 85379; 85384; 85610; 85730; 86022; 86140; 87040; 87070; 87071; 87205; 92950; 93005; 93306; 94002; 94003; 94660; 96361; 99251; 99285; J0171; J0456; J0696; J1100; J1644; J1650; J2185; J2248; J2370; J2405; J2543; J3370; J3475; J3480; J7030; J7040; J7050; J7121; P9047; Q9967; U0002